=== PATIENT | male | born 1965 | race Two or more races ===

== ENCOUNTER 2016-10-27 11:59 | Inpatient (IN) | payer MEDICARE, OTHER ==
[2016-10-27] MEDS ORDERED: ACETAMINOPHEN 325 MG TABLET (FP) PO PRN (17:53)
[2016-10-27] MEDS ORDERED: guaiFENesin/D-METHORPHAN HB 10 ML UNIT-DOSE CUPS PO PRN (17:53)
[2016-10-27] MEDS ORDERED: MAGNESIUM HYDROX 2400MG/30ML ORAL SUSPENSION 30 ML CUP PO PRN (17:53)
[2016-10-27] MEDS ORDERED: IBUPROFEN 400 MG TABLET (FP) PO PRN (17:53)
[2016-10-27] MEDS ORDERED: MAG HYDROX/AL HYDROX/SIMETH 30 ML UNIT-DOSE CUP PO PRN (17:53)
[2016-10-27] MEDS ORDERED: MENTHOL/PHENOL 1 EACH UD MM PRN (17:53)
[2016-10-27] MEDS ORDERED: hydrOXYzine PAMOATE 50 MG CAPSULE (FP) PO PRN (17:53)
[2016-10-27] MEDS ORDERED: MAGNESIUM CITRATE 300 ML BOTTLE PO PRN (17:53)
[2016-10-27] MEDS ORDERED: P-EPHED 60MG/TRIPROLIDI 2.5MG TABLET PO PRN (17:53)
--- NOTE | 2016-10-27 17:53 | HP ---
[facility] Rehab Assess/Revision - Admission History Admitted to Rehab from: [facility] Date of Admission to Rehab: 10/27/16 - Vital signs Vital Signs: Vital Signs Period Temp Pulse Resp BP Sys/Gurrola Pulse Ox Last 24 Hr 97.4 F 97 20 127/72 - Findings Detox History & Physical reviewed: Yes Concur with findings: Yes Comments/Additional Findings: completed detox on 10/24/16, denies significant change on medical + mental. asmitted to rehab as per protocol
[2016-10-27] MEDS: THIAMINE HCL 100 MG TABLET (FP) PO SCH (21:56)
[2016-10-28] MEDS: PRENATAL VITAMINS W/ FOLIC ACID TABLET (FP) PO SCH (09:59)
[2016-10-28 10:23] LABS: MCH 26.4 pg (25.7-33.7); MCHC 32.5 g/dl (32.0-35.9); MEAN CELL VOLUME 81.2 fl (80-96); MEAN PLT VOLUME 7.4 fl (7.5-11.1); PLATELET COUNT 314 K/MM3 (134-434); RDW 15.5 % (11.9-15.9); WHITE BLOOD COUNT 6.1 K/mm3 (4.0-10.0)
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
[2016-10-28 10:38] LABS: ALBUMIN 4.1 g/dl (3.4-5.0); ALK PHOS 107 U/L (45-117); ANION GAP 7 (8-16); BILIRUBIN,TOTAL 0.5 mg/dL (0.2-1.0); CALCIUM 10.4 mg/dL (8.5-10.1); CO2 30 mmol/L (21-32); CREATININE 1.1 mg/dL (0.7-1.3); GLUCOSE,RANDOM 111 mg/dL (74-106); SGOT/AST 15 U/L (15-37); SGPT/ALT 30 U/L (12-78); TOT PROT 7.8 g/dl (6.4-8.2)
[2016-10-28 11:03] LABS: HIV 1 & 2 AB NEGATIVE; HIV 1 AGp24 NEGATIVE
[2016-10-28 14:34] LABS: URINE APPEARANCE CLEAR; URINE BILIRUBIN NEGATIVE (NEGATIVE); URINE BLOOD NEGATIVE (NEGATIVE); URINE COLOR LTYELLOW; URINE GLUCOSE (UA) NEGATIVE (NEGATIVE); URINE KETONE NEGATIVE (NEGATIVE); URINE LEUK ESTERASE NEGATIVE (NEGATIVE); URINE NITRITE NEGATIVE (NEGATIVE); URINE PROTEIN NEGATIVE (NEGATIVE); URINE UROBILINOGEN NEGATIVE E.U./dl (0.2-1.0)
[2016-10-28] MEDS: THIAMINE HCL 100 MG TABLET (FP) PO SCH (21:43)
[2016-10-29] MEDS: LOPERAMIDE HCL 2 MG CAPSULE PO PRN ×2 (10:11→21:44)
[2016-10-29] MEDS: PRENATAL VITAMINS W/ FOLIC ACID TABLET (FP) PO SCH (10:11)
[2016-10-29] MEDS ORDERED: cloNIDine HCL 0.1 MG TABLET PO ONE (12:29)
[2016-10-29] MEDS ORDERED: CYCLOBENZAPRINE HCL 10 MG TABLET (FP) PO PRN (12:30)
[2016-10-29] MEDS: SERTRALINE HCL 50 MG TABLET (FP) PO SCH (21:42)
[2016-10-29] MEDS: diphenhydrAMINE HCL 50 MG CAPSULE PO PRN (21:43)
[2016-10-29] MEDS: cloNIDine HCL 0.1 MG TABLET PO SCH (21:43)
[2016-10-29] MEDS: THIAMINE HCL 100 MG TABLET (FP) PO SCH (21:43)
[2016-10-30] MEDS: cloNIDine HCL 0.1 MG TABLET PO SCH ×2 (09:59→21:20)
[2016-10-30] MEDS: SERTRALINE HCL 50 MG TABLET (FP) PO SCH ×2 (09:59→21:20)
[2016-10-30] MEDS: PRENATAL VITAMINS W/ FOLIC ACID TABLET (FP) PO SCH (09:59)
[2016-10-30] MEDS: THIAMINE HCL 100 MG TABLET (FP) PO SCH (21:20)
[2016-10-30] MEDS: diphenhydrAMINE HCL 50 MG CAPSULE PO PRN (21:21)
[2016-10-31] MEDS: cloNIDine HCL 0.1 MG TABLET PO SCH ×2 (09:40→21:20)
[2016-10-31] MEDS: PRENATAL VITAMINS W/ FOLIC ACID TABLET (FP) PO SCH (09:40)
[2016-10-31] MEDS: SERTRALINE HCL 50 MG TABLET (FP) PO SCH ×2 (09:40→21:20)
[2016-10-31] MEDS: THIAMINE HCL 100 MG TABLET (FP) PO SCH (21:21)
[2016-10-31] MEDS: diphenhydrAMINE HCL 50 MG CAPSULE PO PRN (21:21)
[2016-11-01] MEDS: PRENATAL VITAMINS W/ FOLIC ACID TABLET (FP) PO SCH (09:36)
[2016-11-01] MEDS: SERTRALINE HCL 50 MG TABLET (FP) PO SCH ×2 (09:36→21:10)
[2016-11-01] MEDS: cloNIDine HCL 0.1 MG TABLET PO SCH ×2 (09:36→21:10)
[2016-11-01] MEDS: LOPERAMIDE HCL 2 MG CAPSULE PO PRN (13:14)
[2016-11-01] MEDS: THIAMINE HCL 100 MG TABLET (FP) PO SCH (21:10)
[2016-11-01] MEDS: diphenhydrAMINE HCL 50 MG CAPSULE PO PRN (21:11)
[2016-11-02 06:40] VITALS: TEMP 98.1
[2016-11-02] MEDS: PRENATAL VITAMINS W/ FOLIC ACID TABLET (FP) PO SCH (09:51)
[2016-11-02] MEDS: SERTRALINE HCL 50 MG TABLET (FP) PO SCH ×2 (09:51→21:42)
[2016-11-02] MEDS: cloNIDine HCL 0.1 MG TABLET PO SCH ×2 (09:51→21:43)
[2016-11-02] MEDS: diphenhydrAMINE HCL 50 MG CAPSULE PO PRN (21:42)
[2016-11-02] MEDS: THIAMINE HCL 100 MG TABLET (FP) PO SCH (21:43)
[2016-11-03 06:58] VITALS: BP 136/72; PULSE 81
[2016-11-03] MEDS: cloNIDine HCL 0.1 MG TABLET PO SCH (09:54)
[2016-11-03] MEDS: SERTRALINE HCL 50 MG TABLET (FP) PO SCH (09:54)
[2016-11-03] MEDS: PRENATAL VITAMINS W/ FOLIC ACID TABLET (FP) PO SCH (09:54)
--- NOTE | 2016-11-03 13:04 | PN ---
[id number] on outpatient basis.Patient will continue current medications as per plan.Scripts for 30 days provided.Therapy provided focusing on coping skills ,support system utilization to maintain recovery process. Patient is stable for discharge today.
== END 2016-11-03 13:20 | disposition home or self-care (01) | DRG 895 ==
LOC: YASAS 11:59 → Y5N 17:39
PROVIDERS: ADMIT Psychiatry & Neurology Psychiatry; ATTEND Psychiatry & Neurology Psychiatry
PROC: HZ42ZZZ Group Counseling for Substance Abuse Treatment, Cognitive-Behavioral (ICD-10-PCS; principal; 2016-10-27)
DX: F11.23 Opioid dependence with withdrawal (principal); F33.9 Major depressive disorder, recurrent, unspecified; F17.210 Nicotine dependence, cigarettes, uncomplicated; F43.10 Post-traumatic stress disorder, unspecified
CPT/HCPCS: 36415; 80053; 81003; 85027; 86593; 87389; 93005; 93010

== ENCOUNTER 2016-11-28 11:45 | Inpatient (IN) | payer MEDICARE, OTHER ==
[2016-11-28 12:09] VITALS: BMI 29.7
--- NOTE | 2016-11-28 12:09 | HP ---
COWS - Scale Resting Pulse: 1= [place] 81-100 Sweatin= Chills/Flushing Restless Observation: 1= Difficult to Sit Still Pupil Size: 0= Normal to Room Light Bone or Joint Aches: 1= Mild Discomfort Runny Nose/ Eye Tearin= Nasal Congestion GI Upset > 30mins: 1= Stomach Cramp Tremor Observation: 1= Tremor [place], Not Seen Yawning Observation: 1= 1-2x During Session Anxiety or Irritability: 2=Irritable/Anxious Goose Flesh Skin: 0=Smooth Skin COWS Score: 10 Admission ROS BHS - HPI Chief Complaint: I'm tired, I have to stop, I can't do this any more Allergies/Adverse Reactions: Allergies Allergy/AdvReac Type Severity Reaction Status Date / Time No Known Allergies Allergy Verified 11/28/16 11:55 History of Present Illness: 51 yo gentleman here for detox from heroin - previously here for detox and rehab 10/20 - 11/03/16 and relapsed shortly after leaving. Exam Limitations: Clinical Condition - Ebola screening Have you traveled outside of the country in the last 21 days: No Have you had contact with anyone from an Ebola affected area: No Do you have a fever: No Patient History - Patient Medical History Hx Anemia: No Hx Asthma: No Hx Chronic Obstructive Pulmonary Disease (COPD): No Hx Cancer: No Hx Cardiac Disorders: No Hx Congestive Heart Failure: No Hx Hypertension: No Hx Hypercholesterolemia: No Hx Pacemaker: No HX Cerebrovascular Accident: No Hx Seizures: No Hx Dementia: No Hx Diabetes: No Hx Gastrointestinal Disorders: No Hx Liver Disease: No Hx Genitourinary Disorders: No Hx Sexually Transmitted Disorders: No Hx Renal Disease (ESRD): No Hx Thyroid Disease: No Hx Human Immunodeficiency Virus (HIV): No Hx Hepatitis C: No Hx Depression: Yes (on meds, hx PTSD) Hx Suicide Attempt: Yes (age 40, pills) Hx Bipolar Disorder: No Hx Schizophrenia: No - Patient Surgical History Past Surgical History: No Hx Neurologic Surgery: No Hx Cataract Extraction: No Hx Cardiac Surgery: No Hx Lung Surgery: No Hx Breast Surgery: No Hx Breast Biopsy: No Hx Abdominal Surgery: No Hx Appendectomy: No Hx Cholecystectomy: No Hx Genitourinary Surgery: No Hx Section: No Hx Orthopedic Surgery: No Anesthesia Reaction: No - PPD History Previous Implant?: Yes Documented Results: Negative w/proof Implanted On Prior [facility] Admission?: Yes Date: 10/22/16 PPD to be Administered?: Yes - Reproductive History Patient is a Female of Child Bearing Age (11 -55 yrs old): No (male) - Smoking Cessation Smoking history: Current every day smoker Have you smoked in the past 12 months: Yes Aproximately how many cigarettes per day: 10 Cigars Per Day: 0 Hx Chewing Tobacco Use: No Initiated information on smoking cessation: Yes 'Breaking Loose' booklet given: 11/28/16 (give on floor) - Substance & Tx. History Hx Alcohol Use: No Hx Substance Use: Yes Substance Use Type: Opiates Hx Substance Use Treatment: Yes (detox, rehab) - Substances Abused Heroin Route: Inhalation Frequency: Daily Amount used: 6 bags Age of first use: 49 Date of Last Use: 11/28/16 Family Disease History - Family Disease History Family Disease History: Heart Disease: Mother (STROKE), Other: Father ( MVA) Admission Physical Exam [facility] - Vital Signs Vital Signs: Vital Signs Period Temp Pulse Resp BP Sys/Gurrola Pulse Ox Last 24 Hr 97.8 F 90 18 144/95 - Physical General Appearance: Yes: Nourished, Appropriately Dressed, Mild Distress HEENTM: Yes: Hearing grossly Normal, Normal ENT Inspection, Normocephalic, Normal Voice, Pharynx Normal Respiratory: Yes: Normal Breath Sounds, No Respiratory Distress Neck: Yes: No masses,lesions,Nodules, Supple Breast: Yes: Breast Exam Deferred Cardiology: Yes: Regular Rhythm, Regular Rate Abdominal: Yes: Soft Genitourinary: Yes: Within Normal Limits Back: Yes: Normal Inspection Musculoskeletal: Yes: full range of Motion, Gait Steady Extremities: Yes: Normal Inspection 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: Yes: Fully Oriented, Alert, Normal Mood/Affect, Normal Response Integumentary: Yes: Normal Color, Warm Lymphatic: Yes: Within Normal Limits - Diagnostic (1) Nicotine dependence Current Visit: Yes Status: Chronic Qualifiers: Nicotine product type: cigarettes Substance use status: uncomplicated Qualified Code(s): F17.210 - Nicotine dependence, cigarettes, uncomplicated (2) Opioid dependence with withdrawal Current Visit: Yes Status: Chronic Cleared for Admission [facility] - Detox or Rehab S Level of Care: Medically Managed Detox Regimen/Protocol: Methadone S Breath Alcohol Content Breath Alcohol Content: 0
[2016-11-28] MEDS ORDERED: guaiFENesin/D-METHORPHAN HB 10 ML UNIT-DOSE CUPS PO PRN (12:14)
[2016-11-28] MEDS ORDERED: IBUPROFEN 400 MG TABLET (FP) PO PRN (12:14)
[2016-11-28] MEDS ORDERED: P-EPHED 60MG/TRIPROLIDI 2.5MG TABLET PO PRN (12:14)
[2016-11-28] MEDS ORDERED: MAGNESIUM CITRATE 300 ML BOTTLE PO PRN (12:14)
[2016-11-28] MEDS ORDERED: LOPERAMIDE HCL 2 MG CAPSULE PO PRN (12:14)
[2016-11-28] MEDS ORDERED: hydrOXYzine PAMOATE 50 MG CAPSULE (FP) PO PRN (12:14)
[2016-11-28] MEDS ORDERED: MAGNESIUM HYDROX 2400MG/30ML ORAL SUSPENSION 30 ML CUP PO PRN (12:14)
[2016-11-28] MEDS ORDERED: NICOTINE POLACRILEX 4 MG GUM BUC PRN (12:14)
[2016-11-28] MEDS ORDERED: MENTHOL/PHENOL 1 EACH UD MM PRN (12:14)
[2016-11-28] MEDS ORDERED: MAG HYDROX/AL HYDROX/SIMETH 30 ML UNIT-DOSE CUP PO PRN (12:14)
[2016-11-28] MEDS ORDERED: ACETAMINOPHEN 325 MG TABLET (FP) PO PRN (12:14)
[2016-11-28] MEDS ORDERED: METHADONE HCL 10 MG TABLET (FOR DETOX USE ONLY) PO ONE ×2 (12:30→23:00)
[2016-11-28] MEDS: diazePAM 5 MG TABLET PO PRN ×2 (12:53→22:24)
[2016-11-28 16:32] LABS: URINE APPEARANCE CLEAR; URINE BILIRUBIN NEGATIVE (NEGATIVE); URINE COLOR LTYELLOW; URINE GLUCOSE (UA) NEGATIVE (NEGATIVE); URINE KETONE NEGATIVE (NEGATIVE); URINE LEUK ESTERASE NEGATIVE (NEGATIVE); URINE NITRITE NEGATIVE (NEGATIVE); URINE PROTEIN NEGATIVE (NEGATIVE); URINE UROBILINOGEN NEGATIVE E.U./dl (0.2-1.0)
[2016-11-28 16:37] LABS: URINE BLOOD 1+ (NEGATIVE)
[2016-11-28 16:54] LABS: URINE MUCUS FEW; URINE RBC 2 /hpf (0-3); URINE WBC 1 /hpf (3-5)
[2016-11-28] MEDS: diphenhydrAMINE HCL 50 MG CAPSULE PO PRN (22:24)
[2016-11-28] MEDS: THIAMINE HCL 100 MG TABLET (FP) PO SCH (22:24)
--- NOTE | 2016-11-29 09:46 | EKG ---
Test Reason : Blood Pressure : / mmHG Vent. Rate : 083 BPM Atrial Rate : 083 BPM P-R Int : 146 ms QRS Dur : 084 ms QT Int : 324 ms P-R-T Axes : 118 049 066 degrees QTc Int : 380 ms NORMAL SINUS RHYTHM POOR DATA QUALITY, INTERPRETATION MAY BE ADVERSELY AFFECTED BASELINE ARTIFACT Confirmed by SHARI SONI MD ([id number]) on 11/29/2016 9:46:18 AM Referred By: Confirmed By:SHARI SONI MD
[2016-11-29] MEDS ORDERED: METHADONE HCL 10 MG TABLET (FOR DETOX USE ONLY) PO ONE (10:00)
[2016-11-29 10:21] LABS: MCH 26.8 pg (25.7-33.7); MEAN CELL VOLUME 81.2 fl (80-96); MEAN PLT VOLUME 7.3 fl (7.5-11.1); PLATELET COUNT 331 K/MM3 (134-434); RDW 15.6 % (11.9-15.9)
[2016-11-29] MEDS: diazePAM 5 MG TABLET PO PRN ×2 (10:29→21:59)
[2016-11-29] MEDS: PRENATAL VITAMINS W/ FOLIC ACID TABLET (FP) PO SCH (10:29)
[2016-11-29 10:37] LABS: ALBUMIN 3.8 g/dl (3.4-5.0); ANION GAP 11 (8-16); BILIRUBIN,TOTAL 0.4 mg/dL (0.2-1.0); CALCIUM 9.4 mg/dL (8.5-10.1); CO2 27 mmol/L (21-32); CREATININE 0.9 mg/dL (0.7-1.3); GLUCOSE,RANDOM 98 mg/dL (74-106); SGOT/AST 11 U/L (15-37); SGPT/ALT 20 U/L (12-78); TOT PROT 7.4 g/dl (6.4-8.2)
[2016-11-29 10:38] LABS: ALK PHOS 102 U/L (45-117)
--- NOTE | 2016-11-29 14:46 | PN ---
BHS COWS - Scale Resting Pulse: 1= MT 81-100 Sweatin=Flushed/Facial Moisture Restless Observation: 1= Difficult to Sit Still Pupil Size: 0= Normal to Room Light Bone or Joint Aches: 2= Severe Diffuse Aches Runny Nose/ Eye Tearin= Runny Nose/Eyes GI Upset > 30mins: 2= Nausea/Diarrhea Tremor Observation of Outstretched Hands: 2= Slight Tremor Visible Yawning Observation: 1= 1-2x During Session Anxiety or Irritability: 2=Irritable/Anxious Goose Flesh Skin: 0=Smooth Skin COWS Score: 15 BHS Progress Note (SOAP) Subjective: SWEATING,ANXIETY,BODY ACHES,INTERRUPTED SLEEP,REST LESS. Objective: 11/29/16 14:45 Vital Signs - 8 hr 11/29/16 10:00 Temperature 98.1 F Pulse Rate 95 H Respiratory 18 Rate Blood Pressure 149/97 Laboratory Last Values WBC 6.0 K/mm3 (4.0-10.0) 11/29/16 07:20 RBC 5.71 M/mm3 (4.00-5.60) H 11/29/16 07:20 Hgb 15.3 GM/dL (11.7-16.9) 11/29/16 07:20 Hct 46.4 % (35.4-49) 11/29/16 07:20 MCV 81.2 fl (80-96) 11/29/16 07:20 MCHC 33.0 g/dl (32.0-35.9) 11/29/16 07:20 RDW 15.6 % (11.9-15.9) 11/29/16 07:20 Plt Count 331 K/MM3 (134-434) 11/29/16 07:20 MPV 7.3 fl (7.5-11.1) L 11/29/16 07:20 Sodium 142 mmol/L (136-145) 11/29/16 07:20 Potassium 4.1 mmol/L (3.5-5.1) 11/29/16 07:20 Chloride 104 mmol/L (98-107) 11/29/16 07:20 Carbon Dioxide 27 mmol/L (21-32) 11/29/16 07:20 Anion Gap 11 (8-16) 11/29/16 07:20 BUN 10 mg/dL (7-18) 11/29/16 07:20 Creatinine 0.9 mg/dL (0.7-1.3) 11/29/16 07:20 Creat Clearance w eGFR > 60 (>60) 11/29/16 07:20 Random Glucose 98 mg/dL (74-106) 11/29/16 07:20 Calcium 9.4 mg/dL (8.5-10.1) 11/29/16 07:20 Total Bilirubin 0.4 mg/dL (0.2-1.0) 11/29/16 07:20 AST 11 U/L (15-37) L D 11/29/16 07:20 ALT 20 U/L (12-78) D 11/29/16 07:20 Alkaline Phosphatase 102 U/L (45-117) 11/29/16 07:20 Total Protein 7.4 g/dl (6.4-8.2) 11/29/16 07:20 Albumin 3.8 g/dl (3.4-5.0) 11/29/16 07:20 Urine Color Ltyellow 11/28/16 12:45 Urine Appearance Clear 11/28/16 12:45 Urine pH 6.0 (5.0-8.0) 11/28/16 12:45 Ur Specific Clear 1.017 (1.001-1.035) 11/28/16 12:45 Urine Protein Negative (NEGATIVE) 11/28/16 12:45 Urine Glucose (UA) Negative (NEGATIVE) 11/28/16 12:45 Urine Ketones Negative (NEGATIVE) 11/28/16 12:45 Urine Blood 1+ (NEGATIVE) H 11/28/16 12:45 Urine Nitrite Negative (NEGATIVE) 11/28/16 12:45 Urine Bilirubin Negative (NEGATIVE) 11/28/16 12:45 Urine Urobilinogen Negative E.U./dl (0.2-1.0) 11/28/16 12:45 Ur Leukocyte Esterase Negative (NEGATIVE) 11/28/16 12:45 Urine RBC 2 /hpf (0-3) 11/28/16 12:45 Urine WBC 1 /hpf (3-5) 11/28/16 12:45 Ur Epithelial Cells Rare /hpf (FEW) 11/28/16 12:45 Urine Mucus Few 11/28/16 12:45 RPR Titer Nonreactive (NONREACTIVE) 11/29/16 07:20 LABS NOTED Assessment: 11/29/16 14:45 WITHDRAWAL SX. Plan: CONTINUE DETOX
[2016-11-29] MEDS: diphenhydrAMINE HCL 50 MG CAPSULE PO PRN (21:58)
[2016-11-29] MEDS: THIAMINE HCL 100 MG TABLET (FP) PO SCH (21:59)
--- NOTE | 2016-11-30 09:17 | CONSULT ---
[facility] Psychiatric Consult - Data Date of interview: 11/30/16 Admission source: [facility] Identifying data: This is 51 years old male with history of MDD and PTSD, intoxicated with Opiuoids and Nicotine. Patient reports unclear past psychiatric history, as per computer havinf MMD, PTSD history. Substance Abuse History: - Smoking Cessation. Smoking history: Current every day smoker. Have you smoked in the past 12 months: Yes. Aproximately how many cigarettes per day: 10. Cigars Per Day: 0. Hx Chewing Tobacco Use: No. Initiated information on smoking cessation: Yes. 'Breaking Loose' booklet given : 11/28/16 (give on floor). - Substance & Tx. History. Hx Alcohol Use: No. Hx Substance Use: Yes. Substance Use Type: Opiates. Hx Substance Use Treatment : Yes (detox, rehab). - Substances Abused. Heroin. Route: Inhalation. Frequency: Daily. Amount used: 6 bags. Age of first use: 49. Date of Last Use : 11/28/16 Medical History: Denies Psychiatric History: Patient with history of MDD and PTSD, poor historian, as per computer [facility] been on Zoloft 100mg po bid, currently refusding psychiatric medications Physical/Sexual Abuse/Trauma History: Denies Additional Comment: Observation. Detox Unit Care Protocol Mental Status Exam - Mental Status Exam Alert and Oriented to: Person Cognitive Function: Fair Patient Appearance: Unkempt Mood: Sad Affect: Flat Patient Behavior: Sedated Speech Pattern: Delayed Voice Loudness: Moderately Soft/Quiet Thought Process: Circumstantial Thought Disorder: Being Controlled Hallucinations: Denies Suicidal Ideation: Denies Homicidal Ideation: Denies Insight/Judgement: Fair Sleep: Difficulty falling asleep Appetite: Weight gain Muscle strength/Tone: Mild Hypotonicity Gait/Station: Shuffling Additional Comments: Observation. Detox Unit Care Protocol Psychiatric Findings - Problem List ([place] 1, 2,3) (1) Nicotine dependence Current Visit: Yes Status: Chronic Qualifiers: Nicotine product type: cigarettes Substance use status: uncomplicated Qualified Code(s): F17.210 - Nicotine dependence, cigarettes, uncomplicated (2) Opioid dependence with withdrawal Current Visit: Yes Status: Chronic (3) MDD (major depressive disorder) Current Visit: No Status: Acute (4) PTSD (post-traumatic stress disorder) Current Visit: No Status: Acute (5) Substance induced mood disorder Current Visit: No Status: Acute - Initial Treatment Plan Initial Treatment Plan: Observation. Detox Unit Care Protocol
[2016-11-30] MEDS ORDERED: METHADONE HCL 5 MG TABLET (FOR DETOX USE ONLY) PO ONE (10:00)
[2016-11-30] MEDS: diazePAM 5 MG TABLET PO PRN ×3 (10:25→22:29)
[2016-11-30] MEDS: PRENATAL VITAMINS W/ FOLIC ACID TABLET (FP) PO SCH (10:26)
--- NOTE | 2016-11-30 11:03 | PN ---
S COWS - Scale Resting Pulse: 1= [place] 81-100 Sweatin= Chills/Flushing Restless Observation: 1= Difficult to Sit Still Pupil Size: 1= Pupils >than Normal Bone or Joint Aches: 1= Mild Discomfort Runny Nose/ Eye Tearin= Nasal Congestion GI Upset > 30mins: 2= Nausea/Diarrhea Tremor Observation of Outstretched Hands: 2= Slight Tremor Visible Yawning Observation: 1= 1-2x During Session Anxiety or Irritability: 2=Irritable/Anxious Goose Flesh Skin: 3=Piloerection COWS Score: 16 S Progress Note (SOAP) Subjective: nausea, sweats, interrupted sleep, anxiety, tremors Objective: 11/30/16 11:03 Vital Signs - 24 hr 11/29/16 11/29/16 11/30/16 17:58 21:35 00:30 Temperature 98.4 F 96.4 F L Pulse Rate 79 99 H Respiratory 18 20 18 Rate Blood Pressure 130/70 127/91 11/30/16 11/30/16 11/30/16 03:30 05:02 10:22 Temperature 97.9 F 98.4 F Pulse Rate 77 90 Respiratory 18 18 20 Rate Blood Pressure 116/73 134/94 Laboratory Tests 11/28/16 11/29/16 11/29/16 12:45 07:20 07:20 WBC 6.0 RBC 5.71 H Hgb 15.3 Hct 46.4 MCV 81.2 MCHC 33.0 RDW 15.6 Plt Count 331 MPV 7.3 L Sodium 142 Potassium 4.1 Chloride 104 Carbon Dioxide 27 Anion Gap 11 BUN 10 Creatinine 0.9 Creat Clearance w eGFR > 60 Random Glucose 98 Calcium 9.4 Total Bilirubin 0.4 AST 11 L D ALT 20 D Alkaline Phosphatase 102 Total Protein 7.4 Albumin 3.8 Urine Color Ltyellow Urine Appearance Clear Urine pH 6.0 Ur Specific [place] 1.017 Urine Protein Negative Urine Glucose (UA) Negative Urine Ketones Negative Urine Blood 1+ H Urine Nitrite Negative Urine Bilirubin Negative Urine Urobilinogen Negative Ur Leukocyte Esterase Negative Urine RBC 2 Urine WBC 1 Ur Epithelial Cells Rare Urine Mucus Few RPR Titer 11/29/16 07:20 WBC RBC Hgb Hct MCV MCHC RDW Plt Count MPV Sodium Potassium Chloride Carbon Dioxide Anion Gap BUN Creatinine Creat Clearance w eGFR Random Glucose Calcium Total Bilirubin AST ALT Alkaline Phosphatase Total Protein Albumin Urine Color Urine Appearance Urine pH Ur Specific [place] Urine Protein Urine Glucose (UA) Urine Ketones Urine Blood Urine Nitrite Urine Bilirubin Urine Urobilinogen Ur Leukocyte Esterase Urine RBC Urine WBC Ur Epithelial Cells Urine Mucus RPR Titer Nonreactive Assessment: 11/30/16 11:03 withdrawal sx Plan: cont detox
[2016-11-30] MEDS: diphenhydrAMINE HCL 50 MG CAPSULE PO PRN (22:28)
[2016-11-30] MEDS: THIAMINE HCL 100 MG TABLET (FP) PO SCH (22:29)
[2016-12-01] MEDS ORDERED: METHADONE HCL 5 MG TABLET (FOR DETOX USE ONLY) PO ONE (10:00)
--- NOTE | 2016-12-01 10:20 | PN ---
BHS Progress Note (SOAP) Subjective: shakes sweats agitation interrupted sleep body aches irritable Objective: 12/01/16 10:19 Vital Signs Temperature 97.9 F 12/01/16 09:37 Pulse Rate 94 H 12/01/16 09:37 Respiratory Rate 18 12/01/16 09:37 Blood Pressure 142/99 12/01/16 09:37 O2 Sat by Pulse Oximetry (%) Laboratory Tests 11/28/16 11/29/16 11/29/16 12:45 07:20 07:20 WBC 6.0 RBC 5.71 H Hgb 15.3 Hct 46.4 MCV 81.2 MCHC 33.0 RDW 15.6 Plt Count 331 MPV 7.3 L Sodium 142 Potassium 4.1 Chloride 104 Carbon Dioxide 27 Anion Gap 11 BUN 10 Creatinine 0.9 Creat Clearance w eGFR > 60 Random Glucose 98 Calcium 9.4 Total Bilirubin 0.4 AST 11 L D ALT 20 D Alkaline Phosphatase 102 Total Protein 7.4 Albumin 3.8 Urine Color Ltyellow Urine Appearance Clear Urine pH 6.0 Ur Specific [place] 1.017 Urine Protein Negative Urine Glucose (UA) Negative Urine Ketones Negative Urine Blood 1+ H Urine Nitrite Negative Urine Bilirubin Negative Urine Urobilinogen Negative Ur Leukocyte Esterase Negative Urine RBC 2 Urine WBC 1 Ur Epithelial Cells Rare Urine Mucus Few RPR Titer 11/29/16 07:20 WBC RBC Hgb Hct MCV MCHC RDW Plt Count MPV Sodium Potassium Chloride Carbon Dioxide Anion Gap BUN Creatinine Creat Clearance w eGFR Random Glucose Calcium Total Bilirubin AST ALT Alkaline Phosphatase Total Protein Albumin Urine Color Urine Appearance Urine pH Ur Specific [place] Urine Protein Urine Glucose (UA) Urine Ketones Urine Blood Urine Nitrite Urine Bilirubin Urine Urobilinogen Ur Leukocyte Esterase Urine RBC Urine WBC Ur Epithelial Cells Urine Mucus RPR Titer Nonreactive awake/alert ambulating no acute distress Assessment: 12/01/16 10:20 withdrawal sx Plan: continue detox increase fluids
[2016-12-01] MEDS: diazePAM 5 MG TABLET PO PRN (10:32)
[2016-12-01] MEDS: PRENATAL VITAMINS W/ FOLIC ACID TABLET (FP) PO SCH (10:33)
[2016-12-01 14:09] VITALS: BP 123/74; PULSE 100; TEMP 99.9
--- NOTE | 2016-12-01 15:21 | DS ---
[facility] Detox Discharge Summary Admission Date: 11/28/16 Discharge Date: 12/01/16 (I need to leave this place) - History Present History: Opioid Dependence - Physical Exam Results Vital Signs: Vital Signs Temperature 99.9 F H 12/01/16 14:08 Pulse Rate 100 H 12/01/16 14:08 Respiratory Rate 18 12/01/16 14:08 Blood Pressure 123/74 12/01/16 14:08 O2 Sat by Pulse Oximetry (%) - Medication Discharge Medications: Ambulatory Orders Sertraline HCl [Zoloft -] 100 mg PO BID #120 tablet 11/03/16 - Diagnosis (1) MDD (major depressive disorder) Status: Acute (2) PTSD (post-traumatic stress disorder) Status: Acute (3) Substance induced mood disorder Status: Acute (4) Nicotine dependence Status: Chronic Qualifiers: Nicotine product type: cigarettes Substance use status: uncomplicated Qualified Code(s): F17.210 - Nicotine dependence, cigarettes, uncomplicated (5) Opioid dependence with withdrawal Status: Chronic (6) Depression Status: Suspected Qualifiers: Depression Type: dysthymia Qualified Code(s): F34.1 - Dysthymic disorder - AMA Did Patient Leave Against Medical Advice: Yes
[2016-12-02] MEDS ORDERED: METHADONE HCL 10 MG TABLET (FOR DETOX USE ONLY) PO ONE (10:00)
[2016-12-03] MEDS ORDERED: METHADONE HCL 5 MG TABLET (FOR DETOX USE ONLY) PO ONE (06:00)
== END 2016-12-01 15:01 | disposition left against medical advice (07) | DRG 894 ==
LOC: YASAS 11:45 → Y6N 12:20
PROVIDERS: ADMIT Internal Medicine Addiction Medicine; ATTEND Internal Medicine Addiction Medicine
PROC: HZ2ZZZZ Detoxification Services for Substance Abuse Treatment (ICD-10-PCS; principal; 2016-12-01)
DX: F11.23 Opioid dependence with withdrawal (principal); F33.9 Major depressive disorder, recurrent, unspecified; F17.210 Nicotine dependence, cigarettes, uncomplicated; F34.1 Dysthymic disorder; F43.10 Post-traumatic stress disorder, unspecified
CPT/HCPCS: 36415; 80053; 81003; 81015; 85027; 86593; 93005; 93010

== ENCOUNTER 2017-01-09 12:15 | Inpatient (IN) | payer MEDICARE, OTHER ==
[2017-01-09 13:08] VITALS: BMI 28.8
--- NOTE | 2017-01-09 13:40 | HP ---
[id number] Restless Observation: 1= Difficult to Sit Still Pupil Size: 0= Normal to Room Light Bone or Joint Aches: 2= Severe Diffuse Aches Runny Nose/ Eye Tearin= Runny Nose/Eyes GI Upset > 30mins: 1= Stomach Cramp Tremor Observation: 1= Tremor [place], Not Seen Yawning Observation: 1= 1-2x During Session Anxiety or Irritability: 1=Feels Anxious/Irritable Goose Flesh Skin: 0=Smooth Skin COWS Score: 11 Admission ROS BHS - HPI Chief Complaint: I'm at the end of my rope, I've got to stop the cycle Allergies/Adverse Reactions: Allergies Allergy/AdvReac Type Severity Reaction Status Date / Time No Known Allergies Allergy Verified 01/09/17 13:19 History of Present Illness: 51 yo gentleman here for detox from heroin. Previous detox 11/28/16, then relapsed. No seizures or black outs. Exam Limitations: Clinical Condition - Ebola screening Have you traveled outside of the country in the last 21 days: No Have you had contact with anyone from an Ebola affected area: No Have you been sick,other than usual withdrawal symptoms: No Do you have a fever: No - Review of Systems Constitutional: Loss of Appetite, Malaise, Night Sweats, Changes in sleep EENT: reports: Nose Congestion Respiratory: reports: No Symptoms reported Cardiac: reports: No Symptoms Reported GI: reports: Nausea, Poor Appetite : reports: Dysuria Musculoskeletal: reports: Back Pain, Muscle Pain Integumentary: reports: No Symptoms Reported Neuro: reports: Headache Endocrine: reports: No Symptoms Reported Psychiatric: reports: Judgement Intact, Mood/Affect Appropiate, Orientated x3 Other Systems: Reviewed and Negative Patient History - Patient Medical History Hx Anemia: No Hx Asthma: No Hx Chronic Obstructive Pulmonary Disease (COPD): No Hx Cancer: No Hx Cardiac Disorders: No Hx Congestive Heart Failure: No Hx Hypertension: No Hx Hypercholesterolemia: No Hx Pacemaker: No HX Cerebrovascular Accident: No Hx Seizures: No Hx Dementia: No Hx Diabetes: No Hx Gastrointestinal Disorders: No Hx Liver Disease: No Hx Genitourinary Disorders: No Hx Sexually Transmitted Disorders: No Hx Renal Disease (ESRD): No Hx Thyroid Disease: No Hx Human Immunodeficiency Virus (HIV): No Hx Hepatitis C: No Hx Depression: Yes (on meds, sees psych) Hx Suicide Attempt: No Hx Bipolar Disorder: No Hx Schizophrenia: No - Patient Surgical History Past Surgical History: No Hx Neurologic Surgery: No Hx Cataract Extraction: No Hx Cardiac Surgery: No Hx Lung Surgery: No Hx Breast Surgery: No Hx Breast Biopsy: No Hx Abdominal Surgery: No Hx Appendectomy: No Hx Cholecystectomy: No Hx Genitourinary Surgery: No Hx Section: No Hx Orthopedic Surgery: No Anesthesia Reaction: No - PPD History Previous Implant?: Yes Documented Results: Negative w/proof Implanted On Prior [facility] Admission?: Yes Date: 10/22/16 PPD to be Administered?: No - Reproductive History Patient is a Female of Child Bearing Age (11 -55 yrs old): No (male) - Smoking Cessation Smoking history: Current every day smoker Have you smoked in the past 12 months: Yes Aproximately how many cigarettes per day: 20 Cigars Per Day: 0 Hx Chewing Tobacco Use: No Initiated information on smoking cessation: Yes 'Breaking Loose' booklet given: 01/09/17 (give on floor) - Substance & Tx. History Hx Alcohol Use: No Hx Substance Use: Yes Substance Use Type: Heroin Hx Substance Use Treatment: Yes (detox, ) - Substances Abused Heroin Route: Inhalation Frequency: Daily Amount used: 10 bags Age of first use: 50 Date of Last Use: 01/08/17 Family Disease History - Family Disease History Family Disease History: Heart Disease: Mother (STROKE), Other: Father ( MVA, etoh hx) Admission Physical Exam S - Vital Signs Vital Signs: Vital Signs - 24 hr 01/09/17 13:07 Temperature 97.4 F L Pulse Rate 88 Respiratory 20 Rate Blood Pressure 158/85 - Physical General Appearance: Yes: Nourished, Appropriately Dressed, Mild Distress HEENTM: Yes: Hearing grossly Normal, Normocephalic, Normal Voice, Pharynx Normal , Nasal Congestion Respiratory: Yes: Normal Breath Sounds, No Respiratory Distress Neck: Yes: No masses,lesions,Nodules, Supple, Trachea in good position Breast: Yes: Breast Exam Deferred Cardiology: Yes: Regular Rhythm, Regular Rate Abdominal: Yes: Soft Genitourinary: Yes: Within Normal Limits Back: Yes: Normal Inspection Musculoskeletal: Yes: full range of Motion, Gait Steady, Back pain Extremities: Yes: Normal Inspection, Normal Range of Motion, Non-Tender 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: Yes: Fully Oriented, Alert, Motor Strength 5/5, Normal Mood/Affect , Normal Response Integumentary: Yes: Normal Color, Warm Lymphatic: Yes: Within Normal Limits - Diagnostic (1) Nicotine dependence Current Visit: Yes Status: Chronic Qualifiers: Nicotine product type: cigarettes Substance use status: uncomplicated Qualified Code(s): F17.210 - Nicotine dependence, cigarettes, uncomplicated (2) Opioid dependence with withdrawal Current Visit: Yes Status: Chronic Cleared for Admission [facility] - Detox or Rehab [facility] Level of Care: Medically Managed Detox Regimen/Protocol: Methadone [facility] Breath Alcohol Content Breath Alcohol Content: 0 Urine Drug Screen - Results Drug Screen Negative: No Urine Drug Screen Results: OPI-Opiates, OXY-Oxycodone
[2017-01-09] MEDS ORDERED: MAG HYDROX/AL HYDROX/SIMETH 30 ML UNIT-DOSE CUP PO PRN (13:42)
[2017-01-09] MEDS ORDERED: MENTHOL/PHENOL 1 EACH UD MM PRN (13:42)
[2017-01-09] MEDS ORDERED: P-EPHED 60MG/TRIPROLIDI 2.5MG TABLET PO PRN (13:42)
[2017-01-09] MEDS ORDERED: LOPERAMIDE HCL 2 MG CAPSULE PO PRN (13:42)
[2017-01-09] MEDS ORDERED: MAGNESIUM CITRATE 300 ML BOTTLE PO PRN (13:42)
[2017-01-09] MEDS ORDERED: IBUPROFEN 400 MG TABLET (FP) PO PRN (13:42)
[2017-01-09] MEDS ORDERED: ACETAMINOPHEN 325 MG TABLET (FP) PO PRN (13:42)
[2017-01-09] MEDS ORDERED: guaiFENesin/D-METHORPHAN HB 10 ML UNIT-DOSE CUPS PO PRN (13:42)
[2017-01-09] MEDS ORDERED: hydrOXYzine PAMOATE 50 MG CAPSULE (FP) PO PRN (13:42)
[2017-01-09] MEDS ORDERED: MAGNESIUM HYDROX 2400MG/30ML ORAL SUSPENSION 30 ML CUP PO PRN (13:42)
[2017-01-09] MEDS ORDERED: METHADONE HCL 10 MG TABLET (FOR DETOX USE ONLY) PO ONE ×2 (14:00→23:00)
[2017-01-09] MEDS: diazePAM 5 MG TABLET PO PRN ×2 (14:47→22:17)
[2017-01-09] MEDS: NICOTINE 21 MG/24 HOURS TOPICAL PATCH TD SCH (14:47)
[2017-01-09 17:14] LABS: URINE APPEARANCE CLEAR; URINE BILIRUBIN NEGATIVE (NEGATIVE); URINE BLOOD NEGATIVE (NEGATIVE); URINE COLOR YELLOW; URINE GLUCOSE (UA) NEGATIVE (NEGATIVE); URINE KETONE NEGATIVE (NEGATIVE); URINE LEUK ESTERASE NEGATIVE (NEGATIVE); URINE NITRITE NEGATIVE (NEGATIVE); URINE PROTEIN NEGATIVE (NEGATIVE); URINE UROBILINOGEN NEGATIVE E.U./dl (0.2-1.0)
--- NOTE | 2017-01-09 17:28 | CONSULT ---
[facility] Psychiatric Consult - Data Date of interview: 01/09/17 Admission source: [facility] Identifying data: Another admission to [facility] for this 51 y/o AA male seeking detox treatment on for heroin dependence.Patient is single without children,domiciled,unemployed and supported on SSI benefits. Substance Abuse History: - Smoking Cessation. Smoking history: Current every day smoker. Have you smoked in the past 12 months: Yes. Aproximately how many cigarettes per day: 20. Cigars Per Day: 0. Hx Chewing Tobacco Use: No. Initiated information on smoking cessation: Yes. 'Breaking Loose' booklet given : 01/09/17 (give on floor). - Substance & Tx. History. Hx Alcohol Use: No. Hx Substance Use: Yes. Substance Use Type: Heroin. Hx Substance Use Treatment : Yes (detox, ). - Substances Abused. Heroin. Route: Inhalation. Frequency: Daily. Amount used: 10 bags. Age of first use: 50. Date of Last Use: 01/08/17. Confirmed by patient. Medical History: Patient endorses good general health. Psychiatric History: No history of psychiatric hospitalizations.Diagnosed with MDD/PTSD.Patient reports sporadic contact with his private psychiatrist ( managed on zoloft 100 m/day).Non-compliant for " a few days ".Noted history of a suicide attempt via overdose with drugs (at age 40). Physical/Sexual Abuse/Trauma History: Patient denies. Mental Status Exam - Mental Status Exam Alert and Oriented to: Time, Place, Person Cognitive Function: Good Patient Appearance: Well Groomed (tall stature) Mood: Nervous, Withdrawn, Anxious Affect: Mood Congruent Patient Behavior: Fatigued, Appropriate, Cooperative Speech Pattern: Clear, Appropriate Voice Loudness: Normal Thought Process: Goal Oriented Thought Disorder: Not Present Hallucinations: Denies Suicidal Ideation: Denies Homicidal Ideation: Denies Insight/Judgement: Poor Sleep: Well Appetite: Good Muscle strength/Tone: Normal Gait/Station: Normal Psychiatric Findings - Problem List ([place] 1, 2,3) (1) Opioid dependence with withdrawal Current Visit: Yes Status: Acute (2) Nicotine dependence Current Visit: Yes Status: Acute Qualifiers: Nicotine product type: cigarettes Substance use status: uncomplicated Qualified Code(s): F17.210 - Nicotine dependence, cigarettes, uncomplicated (3) Substance induced mood disorder Current Visit: Yes Status: Acute (4) PTSD (post-traumatic stress disorder) Current Visit: Yes Status: Chronic (5) MDD (major depressive disorder) Current Visit: No Status: Chronic - Initial Treatment Plan Initial Treatment Plan: Psychoeducation.Detoxification.Zoloft 100 mg po daily.Side effects/benefits discused with the patient.He agrees with this plan.Observation.
[2017-01-09] MEDS: THIAMINE HCL 100 MG TABLET (FP) PO SCH (22:17)
[2017-01-09] MEDS: diphenhydrAMINE HCL 50 MG CAPSULE PO PRN (22:17)
[2017-01-10] MEDS ORDERED: METHADONE HCL 10 MG TABLET (FOR DETOX USE ONLY) PO ONE (10:00)
[2017-01-10] MEDS: PRENATAL VITAMINS W/ FOLIC ACID TABLET (FP) PO SCH (10:10)
[2017-01-10] MEDS: SERTRALINE HCL 50 MG TABLET (FP) PO SCH (10:10)
[2017-01-10] MEDS: NICOTINE 21 MG/24 HOURS TOPICAL PATCH TD SCH (10:11)
[2017-01-10 11:18] LABS: ALBUMIN 3.6 g/dl (3.4-5.0); ANION GAP 7 (8-16); CALCIUM 9.2 mg/dL (8.5-10.1); CO2 32 mmol/L (21-32); GLUCOSE,RANDOM 111 mg/dL (74-106); SGOT/AST 11 U/L (15-37); SGPT/ALT 26 U/L (12-78)
[2017-01-10 11:20] LABS: ALK PHOS 94 U/L (45-117); BILIRUBIN,TOTAL 0.4 mg/dL (0.2-1.0); TOT PROT 6.8 g/dl (6.4-8.2)
[2017-01-10 11:37] LABS: MCH 26.4 pg (25.7-33.7); MCHC 32.6 g/dl (32.0-35.9); MEAN CELL VOLUME 80.9 fl (80-96); MEAN PLT VOLUME 7.5 fl (7.5-11.1); PLATELET COUNT 245 K/MM3 (134-434); WHITE BLOOD COUNT 5.6 K/mm3 (4.0-10.0)
--- NOTE | 2017-01-10 12:34 | EKG ---
Test Reason : Blood Pressure : / mmHG Vent. Rate : 085 BPM Atrial Rate : 085 BPM P-R Int : 162 ms QRS Dur : 096 ms QT Int : 370 ms P-R-T Axes : 058 024 053 degrees QTc Int : 440 ms NORMAL SINUS RHYTHM POOR DATA QUALITY, INTERPRETATION MAY BE ADVERSELY AFFECTED Confirmed by SHARI SONI MD ([id number]) on 01/10/2017 12:33:39 PM Referred By: Confirmed By:SHARI SONI MD
--- NOTE | 2017-01-10 15:55 | PN ---
BHS COWS - Scale Resting Pulse: 2= [place] 101-120 Sweatin=Flushed/Facial Moisture Restless Observation: 1= Difficult to Sit Still Pupil Size: 0= Normal to Room Light Bone or Joint Aches: 2= Severe Diffuse Aches Runny Nose/ Eye Tearin= Runny Nose/Eyes GI Upset > 30mins: 2= Nausea/Diarrhea Tremor Observation of Outstretched Hands: 2= Slight Tremor Visible Yawning Observation: 1= 1-2x During Session Anxiety or Irritability: 2=Irritable/Anxious Goose Flesh Skin: 0=Smooth Skin COWS Score: 16 BHS Progress Note (SOAP) Subjective: sweating,anxiety,tremors,interrupted sleep,restless,muscle aches Objective: 01/10/17 15:54 Vital Signs - 8 hr 01/10/17 01/10/17 11:12 13:45 Temperature 97.2 F L 97.0 F L Pulse Rate 104 H 100 H Respiratory 18 20 Rate Blood Pressure 149/98 139/91 Laboratory Tests 01/09/17 01/10/17 01/10/17 12:23 08:00 08:00 WBC 5.6 RBC 5.56 Hgb 14.7 Hct 44.9 MCV 80.9 MCHC 32.6 RDW 15.0 Plt Count 245 D MPV 7.5 Sodium 142 Potassium 4.2 Chloride 103 Carbon Dioxide 32 Anion Gap 7 L BUN 10 Creatinine 1.0 Creat Clearance w eGFR > 60 Random Glucose 111 H Calcium 9.2 Total Bilirubin 0.4 AST 11 L ALT 26 D Alkaline Phosphatase 94 Total Protein 6.8 Albumin 3.6 Urine Color Yellow Urine Appearance Clear Urine pH 5.0 Ur Specific [place] 1.024 Urine Protein Negative Urine Glucose (UA) Negative Urine Ketones Negative Urine Blood Negative Urine Nitrite Negative Urine Bilirubin Negative Urine Urobilinogen Negative Ur Leukocyte Esterase Negative RPR Titer 01/10/17 08:00 WBC RBC Hgb Hct MCV MCHC RDW Plt Count MPV Sodium Potassium Chloride Carbon Dioxide Anion Gap BUN Creatinine Creat Clearance w eGFR Random Glucose Calcium Total Bilirubin AST ALT Alkaline Phosphatase Total Protein Albumin Urine Color Urine Appearance Urine pH Ur Specific [place] Urine Protein Urine Glucose (UA) Urine Ketones Urine Blood Urine Nitrite Urine Bilirubin Urine Urobilinogen Ur Leukocyte Esterase RPR Titer Nonreactive labs noted Assessment: 01/10/17 15:54 Withdrawal sx. Plan: Continue detox
[2017-01-10] MEDS: diazePAM 5 MG TABLET PO PRN (22:13)
[2017-01-10] MEDS: diphenhydrAMINE HCL 50 MG CAPSULE PO PRN (22:13)
[2017-01-10] MEDS: THIAMINE HCL 100 MG TABLET (FP) PO SCH (22:13)
[2017-01-11] MEDS ORDERED: METHADONE HCL 5 MG TABLET (FOR DETOX USE ONLY) PO ONE (10:00)
[2017-01-11] MEDS: NICOTINE 21 MG/24 HOURS TOPICAL PATCH TD SCH (10:14)
[2017-01-11] MEDS: NICOTINE POLACRILEX 4 MG GUM BUC PRN (10:15)
[2017-01-11] MEDS: diazePAM 5 MG TABLET PO PRN ×3 (10:15→22:09)
[2017-01-11] MEDS: SERTRALINE HCL 50 MG TABLET (FP) PO SCH (10:16)
[2017-01-11] MEDS: PRENATAL VITAMINS W/ FOLIC ACID TABLET (FP) PO SCH (10:16)
--- NOTE | 2017-01-11 11:23 | PN ---
BHS COWS - Scale Resting Pulse: 1= [place] 81-100 Sweatin= Chills/Flushing Restless Observation: 3= Extraneous Movement Pupil Size: 2= Moderately Dilated Bone or Joint Aches: 4=Acute Joint/Muscle Pain Runny Nose/ Eye Tearin= Nasal Congestion GI Upset > 30mins: 2= Nausea/Diarrhea Tremor Observation of Outstretched Hands: 1= Tremor [place], Not Seen Yawning Observation: 1= 1-2x During Session Anxiety or Irritability: 1=Feels Anxious/Irritable Goose Flesh Skin: 0=Smooth Skin COWS Score: 17 S Progress Note (SOAP) Subjective: ANXIETY,SWEATS,[place]ARRHE[place]. Objective: 01/11/17 11:22 Vital Signs Temperature 97.5 F L 01/11/17 10:58 Pulse Rate 90 01/11/17 10:58 Respiratory Rate 20 01/11/17 10:58 Blood Pressure 139/92 01/11/17 10:58 O2 Sat by Pulse Oximetry (%) Laboratory Last Values WBC 5.6 K/mm3 (4.0-10.0) 01/10/17 08:00 RBC 5.56 M/mm3 (4.00-5.60) 01/10/17 08:00 Hgb 14.7 GM/dL (11.7-16.9) 01/10/17 08:00 Hct 44.9 % (35.4-49) 01/10/17 08:00 MCV 80.9 fl (80-96) 01/10/17 08:00 MCHC 32.6 g/dl (32.0-35.9) 01/10/17 08:00 RDW 15.0 % (11.9-15.9) 01/10/17 08:00 Plt Count 245 K/MM3 (134-434) D 01/10/17 08:00 MPV 7.5 fl (7.5-11.1) 01/10/17 08:00 Sodium 142 mmol/L (136-145) 01/10/17 08:00 Potassium 4.2 mmol/L (3.5-5.1) 01/10/17 08:00 Chloride 103 mmol/L (98-107) 01/10/17 08:00 Carbon Dioxide 32 mmol/L (21-32) 01/10/17 08:00 Anion Gap 7 (8-16) L 01/10/17 08:00 BUN 10 mg/dL (7-18) 01/10/17 08:00 Creatinine 1.0 mg/dL (0.7-1.3) 01/10/17 08:00 Creat Clearance w eGFR > 60 (>60) 01/10/17 08:00 Random Glucose 111 mg/dL (74-106) H 01/10/17 08:00 Calcium 9.2 mg/dL (8.5-10.1) 01/10/17 08:00 Total Bilirubin 0.4 mg/dL (0.2-1.0) 01/10/17 08:00 AST 11 U/L (15-37) L 01/10/17 08:00 ALT 26 U/L (12-78) D 01/10/17 08:00 Alkaline Phosphatase 94 U/L (45-117) 01/10/17 08:00 Total Protein 6.8 g/dl (6.4-8.2) 01/10/17 08:00 Albumin 3.6 g/dl (3.4-5.0) 01/10/17 08:00 Urine Color Yellow 01/09/17 12:23 Urine Appearance Clear 01/09/17 12:23 Urine pH 5.0 (5.0-8.0) 01/09/17 12:23 Ur Specific [place] 1.024 (1.001-1.035) 01/09/17 12:23 Urine Protein Negative (NEGATIVE) 01/09/17 12:23 Urine Glucose (UA) Negative (NEGATIVE) 01/09/17 12:23 Urine Ketones Negative (NEGATIVE) 01/09/17 12:23 Urine Blood Negative (NEGATIVE) 01/09/17 12:23 Urine Nitrite Negative (NEGATIVE) 01/09/17 12:23 Urine Bilirubin Negative (NEGATIVE) 01/09/17 12:23 Urine Urobilinogen Negative E.U./dl (0.2-1.0) 01/09/17 12:23 Ur Leukocyte Esterase Negative (NEGATIVE) 01/09/17 12:23 RPR Titer Nonreactive (NONREACTIVE) 01/10/17 08:00 Assessment: 01/11/17 11:22 WITHDRAWAL SX Plan: CONTINUE DETOX
[2017-01-11] MEDS: THIAMINE HCL 100 MG TABLET (FP) PO SCH (22:10)
[2017-01-11] MEDS: diphenhydrAMINE HCL 50 MG CAPSULE PO PRN (22:10)
[2017-01-12] MEDS ORDERED: diphenhydrAMINE HCL 50 MG CAPSULE PO PRN (09:49)
[2017-01-12] MEDS ORDERED: METHADONE HCL 5 MG TABLET (FOR DETOX USE ONLY) PO ONE (10:00)
--- NOTE | 2017-01-12 10:07 | PN ---
BHS Progress Note (SOAP) Subjective: ANXIETY,SWEATS,INTERMITTENT SLEEP--BENADRYL 50 MG NOT EFFECTIVE. Objective: 01/12/17 10:06 Vital Signs Temperature 98 F 01/11/17 22:15 Pulse Rate 103 H 01/11/17 22:15 Respiratory Rate 18 01/12/17 09:36 Blood Pressure 126/88 01/11/17 22:15 O2 Sat by Pulse Oximetry (%) Assessment: 01/12/17 10:07 WITHDRAWAL SX Plan: CONTINUE DETOX INCREASE BENADRYL 100 MG PO HS STARTING TONIGHT.
[2017-01-12] MEDS: SERTRALINE HCL 50 MG TABLET (FP) PO SCH (10:18)
[2017-01-12] MEDS: NICOTINE 21 MG/24 HOURS TOPICAL PATCH TD SCH (10:18)
[2017-01-12] MEDS: PRENATAL VITAMINS W/ FOLIC ACID TABLET (FP) PO SCH (10:18)
[2017-01-12] MEDS: diazePAM 5 MG TABLET PO PRN (10:18)
[2017-01-12] MEDS: NICOTINE POLACRILEX 4 MG GUM BUC PRN (10:19)
[2017-01-12] MEDS: diphenhydrAMINE HCL 50 MG CAPSULE PO PRN (22:19)
[2017-01-12] MEDS: THIAMINE HCL 100 MG TABLET (FP) PO SCH (22:19)
[2017-01-13] MEDS ORDERED: METHADONE HCL 10 MG TABLET (FOR DETOX USE ONLY) PO ONE (10:00)
[2017-01-13] MEDS: SERTRALINE HCL 50 MG TABLET (FP) PO SCH (10:16)
[2017-01-13] MEDS: PRENATAL VITAMINS W/ FOLIC ACID TABLET (FP) PO SCH (10:16)
[2017-01-13] MEDS: NICOTINE 21 MG/24 HOURS TOPICAL PATCH TD SCH (10:17)
--- NOTE | 2017-01-13 10:44 | PN ---
BHS Progress Note (SOAP) Subjective: ANXIETY,SWEATS,FATIGUE. Objective: 01/13/17 10:43 Vital Signs Temperature 96.7 F L 01/13/17 09:36 Pulse Rate 102 H 01/13/17 09:36 Respiratory Rate 18 01/13/17 09:36 Blood Pressure 122/77 01/13/17 09:36 O2 Sat by Pulse Oximetry (%) Assessment: 01/13/17 10:43 WITHDRAWAL SX Plan: CONTINUE DETOX
[2017-01-13] MEDS: THIAMINE HCL 100 MG TABLET (FP) PO SCH (22:12)
[2017-01-13] MEDS: diphenhydrAMINE HCL 50 MG CAPSULE PO PRN (22:12)
[2017-01-13 22:39] VITALS: TEMP 96.8
[2017-01-14] MEDS ORDERED: METHADONE HCL 5 MG TABLET (FOR DETOX USE ONLY) PO ONE (06:00)
[2017-01-14 06:51] VITALS: BP 118/81; PULSE 92
--- NOTE | 2017-01-14 09:46 | DS ---
[facility] Detox Discharge Summary Admission Date: 01/09/17 Discharge Date: 01/14/17 - History Present History: Opioid Dependence Additional Comments: DETOX COMPLETED.ALERT O X 3. NAD. Pertinent Past History: DEPRESSION - Physical Exam Results Vital Signs: Vital Signs Temperature 96.8 F L 01/14/17 06:50 Pulse Rate 92 H 01/14/17 06:50 Respiratory Rate 18 01/14/17 06:50 Blood Pressure 118/81 01/14/17 06:50 O2 Sat by Pulse Oximetry (%) Pertinent Admission Physical Exam Findings: WITHDRAWAL SX Laboratory Last Values WBC 5.6 K/mm3 (4.0-10.0) 01/10/17 08:00 RBC 5.56 M/mm3 (4.00-5.60) 01/10/17 08:00 Hgb 14.7 GM/dL (11.7-16.9) 01/10/17 08:00 Hct 44.9 % (35.4-49) 01/10/17 08:00 MCV 80.9 fl (80-96) 01/10/17 08:00 MCHC 32.6 g/dl (32.0-35.9) 01/10/17 08:00 RDW 15.0 % (11.9-15.9) 01/10/17 08:00 Plt Count 245 K/MM3 (134-434) D 01/10/17 08:00 MPV 7.5 fl (7.5-11.1) 01/10/17 08:00 Sodium 142 mmol/L (136-145) 01/10/17 08:00 Potassium 4.2 mmol/L (3.5-5.1) 01/10/17 08:00 Chloride 103 mmol/L (98-107) 01/10/17 08:00 Carbon Dioxide 32 mmol/L (21-32) 01/10/17 08:00 Anion Gap 7 (8-16) L 01/10/17 08:00 BUN 10 mg/dL (7-18) 01/10/17 08:00 Creatinine 1.0 mg/dL (0.7-1.3) 01/10/17 08:00 Creat Clearance w eGFR > 60 (>60) 01/10/17 08:00 Random Glucose 111 mg/dL (74-106) H 01/10/17 08:00 Calcium 9.2 mg/dL (8.5-10.1) 01/10/17 08:00 Total Bilirubin 0.4 mg/dL (0.2-1.0) 01/10/17 08:00 AST 11 U/L (15-37) L 01/10/17 08:00 ALT 26 U/L (12-78) D 01/10/17 08:00 Alkaline Phosphatase 94 U/L (45-117) 01/10/17 08:00 Total Protein 6.8 g/dl (6.4-8.2) 01/10/17 08:00 Albumin 3.6 g/dl (3.4-5.0) 01/10/17 08:00 Urine Color Yellow 01/09/17 12:23 Urine Appearance Clear 01/09/17 12:23 Urine pH 5.0 (5.0-8.0) 01/09/17 12:23 Ur Specific [place] 1.024 (1.001-1.035) 01/09/17 12:23 Urine Protein Negative (NEGATIVE) 01/09/17 12:23 Urine Glucose (UA) Negative (NEGATIVE) 01/09/17 12:23 Urine Ketones Negative (NEGATIVE) 01/09/17 12:23 Urine Blood Negative (NEGATIVE) 01/09/17 12:23 Urine Nitrite Negative (NEGATIVE) 01/09/17 12:23 Urine Bilirubin Negative (NEGATIVE) 01/09/17 12:23 Urine Urobilinogen Negative E.U./dl (0.2-1.0) 01/09/17 12:23 Ur Leukocyte Esterase Negative (NEGATIVE) 01/09/17 12:23 RPR Titer Nonreactive (NONREACTIVE) 01/10/17 08:00 Hepatitis C Antibody 0.1 s/co ratio (0.0-0.9) 01/10/17 08:00 - Treatment Hospital Course: Detox Protocol Followed, Detoxed Safely, Responded well, Discharged Condition Good, Rehab Referral Accepted Patient has Accepted a Rehab Referral to: [facility] - Medication Discharge Medications: Ambulatory Orders Sertraline HCl [Zoloft -] 100 mg PO BID #120 tablet 11/03/16 Sertraline HCl [Zoloft -] 100 mg PO DAILY #30 tablet 01/09/17 - Diagnosis (1) Nicotine dependence Status: Acute Qualifiers: Nicotine product type: cigarettes Substance use status: uncomplicated Qualified Code(s): F17.210 - Nicotine dependence, cigarettes, uncomplicated (2) Opioid dependence with withdrawal Status: Acute (3) MDD (major depressive disorder) Status: Chronic (4) PTSD (post-traumatic stress disorder) Status: Chronic - AMA Did Patient Leave Against Medical Advice: No
== END 2017-01-14 09:15 | disposition home or self-care (01) | DRG 897 ==
LOC: YASAS 12:15 → Y3N 13:39
PROVIDERS: ADMIT Internal Medicine; ATTEND Internal Medicine
PROC: HZ2ZZZZ Detoxification Services for Substance Abuse Treatment (ICD-10-PCS; principal; 2017-01-14)
DX: F11.23 Opioid dependence with withdrawal (principal); F33.9 Major depressive disorder, recurrent, unspecified; F17.210 Nicotine dependence, cigarettes, uncomplicated; F19.24 Other psychoactive substance dependence with psychoactive substance-induced mood disorder; F43.10 Post-traumatic stress disorder, unspecified
CPT/HCPCS: 36415; 80053; 81003; 85027; 86593; 93005; 93010

== ENCOUNTER 2017-03-05 10:36 | Inpatient (IN) | payer MEDICARE, OTHER ==
[2017-03-05 14:23] VITALS: BMI 28.8
--- NOTE | 2017-03-05 15:36 | HP ---
COWS - Scale Resting Pulse: 1= [place] 81-100 Sweatin=Flushed/Facial Moisture Restless Observation: 1= Difficult to Sit Still Pupil Size: 0= Normal to Room Light Bone or Joint Aches: 2= Severe Diffuse Aches Runny Nose/ Eye Tearin= Runny Nose/Eyes GI Upset > 30mins: 2= Nausea/Diarrhea Tremor Observation: 2= Slight Tremor Visible Yawning Observation: 2= >3x During Session Anxiety or Irritability: 2=Irritable/Anxious Goose Flesh Skin: 3=[place]iloe[place] COWS Score: 19 Admission ROS S - HPI Chief Complaint: I am here to detox. Allergies/Adverse Reactions: Allergies Allergy/AdvReac Type Severity Reaction Status Date / Time No Known Allergies Allergy Verified 03/05/17 14:10 History of Present Illness: pt is a 51yr old male with a history of heroin dependence seeking detox for treatment. Exam Limitations: No Limitations - Ebola screening Have you traveled outside of the country in the last 21 days: No Have you had contact with anyone from an Ebola affected area: No Have you been sick,other than usual withdrawal symptoms: No Do you have a fever: No - Review of Systems Constitutional: Chills, Diaphoresis, Loss of Appetite, Unintentional Wgt. Loss EENT: reports: Nose Congestion Respiratory: reports: No Symptoms reported Cardiac: reports: No Symptoms Reported GI: reports: Diarrhea, Poor Appetite, Poor Fluid Intake : reports: No Symptoms Reported Musculoskeletal: reports: No Symptoms Reported Integumentary: reports: Flushing, Sweating Neuro: reports: Tingling, Tremors Endocrine: reports: Excessive Sweating, Flushing, Intolerance to Cold, Intolerance to Heat Hematology: reports: No Symptoms Reported Psychiatric: reports: Judgement Intact, Orientated x3, Agitated, Anxious Other Systems: Reviewed and Negative Patient History - Patient Medical History Hx Anemia: No Hx Asthma: No Hx Chronic Obstructive Pulmonary Disease (COPD): No Hx Cancer: No Hx Cardiac Disorders: No Hx Congestive Heart Failure: No Hx Hypertension: No Hx Hypercholesterolemia: No Hx Pacemaker: No HX Cerebrovascular Accident: No Hx Seizures: No Hx Dementia: No Hx Diabetes: No Hx Gastrointestinal Disorders: No Hx Liver Disease: No Hx Genitourinary Disorders: No Hx Sexually Transmitted Disorders: No Hx Renal Disease (ESRD): No Hx Thyroid Disease: No Hx Human Immunodeficiency Virus (HIV): No Hx Hepatitis C: No Hx Depression: Yes Hx Suicide Attempt: No Hx Bipolar Disorder: No Hx Schizophrenia: No - Patient Surgical History Past Surgical History: No Hx Neurologic Surgery: No Hx Cataract Extraction: No Hx Cardiac Surgery: No Hx Lung Surgery: No Hx Breast Surgery: No Hx Breast Biopsy: No Hx Abdominal Surgery: No Hx Appendectomy: No Hx Cholecystectomy: No Hx Genitourinary Surgery: No Hx Section: No Hx Orthopedic Surgery: No Anesthesia Reaction: No - PPD History Previous Implant?: Yes Documented Results: Negative w/proof Implanted On Prior [facility] Admission?: Yes Date: 10/22/16 Results: 0 mm PPD to be Administered?: No - Reproductive History Patient is a Female of Child Bearing Age (11 -55 yrs old): No - Smoking Cessation Smoking history: Current every day smoker Have you smoked in the past 12 months: Yes Aproximately how many cigarettes per day: 20 Cigars Per Day: 0 Hx Chewing Tobacco Use: No Initiated information on smoking cessation: Yes 'Breaking Loose' booklet given: 03/05/17 - Substance & Tx. History Hx Alcohol Use: No Hx Substance Use: Yes Substance Use Type: Heroin - Substances Abused Heroin Route: Inhalation Frequency: Daily Amount used: 10 bags Age of first use: 50 Date of Last Use: 03/04/17 Family Disease History - Family Disease History Family Disease History: Heart Disease: Mother (STROKE), Other: Father ( MVA, etoh hx) Admission Physical Exam BHS - Vital Signs Vital Signs: Vital Signs - 24 hr 03/05/17 14:19 Temperature 97.0 F L Pulse Rate 91 H Respiratory 20 Rate Blood Pressure 144/81 - Physical General Appearance: Yes: Appropriately Dressed, Moderate Distress, Tremorous, Irritable, Sweating, Anxious HEENTM: Yes: Hearing grossly Normal, Nasal Congestion Respiratory: Yes: Lungs Clear, Normal Breath Sounds, No Respiratory Distress Neck: Yes: No masses,lesions,Nodules Breast: Yes: Within Normal Limits Cardiology: Yes: Regular Rhythm, Regular Rate, S1, S2 Abdominal: Yes: Normal Bowel Sounds, Non Tender, Soft Genitourinary: Yes: Within Normal Limits Back: Yes: Normal Inspection Musculoskeletal: Yes: full range of Motion Extremities: Yes: Normal Capillary Refill, Tremors 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: Yes: Fully Oriented, Alert, Normal Response Integumentary: Yes: Normal Color, Diaphoresis Lymphatic: Yes: Within Normal Limits - Diagnostic (1) Nicotine dependence Current Visit: Yes Status: Chronic Qualifiers: Nicotine product type: cigarettes Substance use status: uncomplicated Qualified Code(s): F17.210 - Nicotine dependence, cigarettes, uncomplicated (2) Opioid dependence with withdrawal Current Visit: Yes Status: Chronic Cleared for Admission [facility] - Detox or Rehab [facility] Level of Care: Medically Managed Detox Regimen/Protocol: Methadone [facility] Breath Alcohol Content Breath Alcohol Content: 0 Urine Drug Screen - Results Drug Screen Negative: No Urine Drug Screen Results: OPI-Opiates
[2017-03-05] MEDS ORDERED: guaiFENesin/D-METHORPHAN HB 10 ML UNIT-DOSE CUPS PO PRN (15:38)
[2017-03-05] MEDS ORDERED: MENTHOL/PHENOL 1 EACH UD MM PRN (15:38)
[2017-03-05] MEDS ORDERED: diphenhydrAMINE HCL 50 MG CAPSULE PO PRN (15:38)
[2017-03-05] MEDS ORDERED: P-EPHED 60MG/TRIPROLIDI 2.5MG TABLET PO PRN (15:38)
[2017-03-05] MEDS ORDERED: MAG HYDROX/AL HYDROX/SIMETH 30 ML UNIT-DOSE CUP PO PRN (15:38)
[2017-03-05] MEDS ORDERED: hydrOXYzine PAMOATE 50 MG CAPSULE (FP) PO PRN (15:38)
[2017-03-05] MEDS ORDERED: ACETAMINOPHEN 325 MG TABLET (FP) PO PRN (15:38)
[2017-03-05] MEDS ORDERED: MAGNESIUM HYDROX 2400MG/30ML ORAL SUSPENSION 30 ML CUP PO PRN (15:38)
[2017-03-05] MEDS ORDERED: MAGNESIUM CITRATE 300 ML BOTTLE PO PRN (15:38)
[2017-03-05] MEDS ORDERED: IBUPROFEN 400 MG TABLET (FP) PO PRN (15:38)
[2017-03-05] MEDS ORDERED: LOPERAMIDE HCL 2 MG CAPSULE PO PRN (15:38)
[2017-03-05] MEDS ORDERED: METHADONE HCL 10 MG TABLET (FOR DETOX USE ONLY) PO ONE ×2 (15:43→23:00)
[2017-03-05 22:25] LABS: URINE APPEARANCE CLEAR; URINE BILIRUBIN NEGATIVE (NEGATIVE); URINE BLOOD NEGATIVE (NEGATIVE); URINE COLOR YELLOW; URINE GLUCOSE (UA) NEGATIVE (NEGATIVE); URINE KETONE TRACE (NEGATIVE); URINE LEUK ESTERASE NEGATIVE (NEGATIVE); URINE NITRITE NEGATIVE (NEGATIVE); URINE PROTEIN NEGATIVE (NEGATIVE); URINE UROBILINOGEN NEGATIVE E.U./dl (0.2-1.0)
[2017-03-05] MEDS: THIAMINE HCL 100 MG TABLET (FP) PO SCH (22:52)
[2017-03-06] MEDS ORDERED: METHADONE HCL 10 MG TABLET (FOR DETOX USE ONLY) PO ONE (10:00)
[2017-03-06 10:16] LABS: MCH 26.9 pg (25.7-33.7); MCHC 33.1 g/dl (32.0-35.9); MEAN CELL VOLUME 81.1 fl (80-96); MEAN PLT VOLUME 7.7 fl (7.5-11.1); PLATELET COUNT 304 K/MM3 (134-434); RDW 14.9 % (11.9-15.9)
[2017-03-06 10:29] LABS: ALK PHOS 106 U/L (45-117); ANION GAP 9 (8-16); BILIRUBIN,TOTAL 0.3 mg/dL (0.2-1.0); CALCIUM 9.6 mg/dL (8.5-10.1); CO2 31 mmol/L (21-32); COCKROFT - GAULT 143.32; CREATININE 0.9 mg/dL (0.7-1.3); GLUCOSE,RANDOM 118 mg/dL (74-106); SGOT/AST 14 U/L (15-37); SGPT/ALT 25 U/L (12-78); TOT PROT 7.4 g/dl (6.4-8.2)
[2017-03-06] MEDS: PRENATAL VITAMINS W/ FOLIC ACID TABLET (FP) PO SCH (10:54)
[2017-03-06] MEDS: NICOTINE 21 MG/24 HOURS TOPICAL PATCH TD SCH (10:54)
[2017-03-06] MEDS: diazePAM 5 MG TABLET PO PRN ×2 (10:56→22:44)
[2017-03-06] MEDS: NICOTINE POLACRILEX 4 MG GUM BUC PRN ×2 (10:56→22:46)
--- NOTE | 2017-03-06 15:00 | PN ---
[facility] COWS - Scale Resting Pulse: 1= [place] 81-100 Sweatin=Flushed/Facial Moisture Restless Observation: 1= Difficult to Sit Still Pupil Size: 0= Normal to Room Light Bone or Joint Aches: 1= Mild Discomfort Runny Nose/ Eye Tearin= Runny Nose/Eyes GI Upset > 30mins: 2= Nausea/Diarrhea Tremor Observation of Outstretched Hands: 2= Slight Tremor Visible Yawning Observation: 1= 1-2x During Session Anxiety or Irritability: 1=Feels Anxious/Irritable Goose Flesh Skin: 3=Piloerection COWS Score: 16 [facility] Progress Note (SOAP) Subjective: Shakes, sweats, generalized pain and weakness, anxiety Objective: 03/06/17 14:59 Vital Signs - 8 hr 03/06/17 10:57 Temperature 98.2 F Pulse Rate 106 H Respiratory 16 Rate Blood Pressure 126/98 Laboratory Last Values WBC 6.0 K/mm3 (4.0-10.0) 03/06/17 06:10 RBC 5.37 M/mm3 (4.00-5.60) 03/06/17 06:10 Hgb 14.4 GM/dL (11.7-16.9) 03/06/17 06:10 Hct 43.6 % (35.4-49) 03/06/17 06:10 MCV 81.1 fl (80-96) 03/06/17 06:10 MCHC 33.1 g/dl (32.0-35.9) 03/06/17 06:10 RDW 14.9 % (11.9-15.9) 03/06/17 06:10 Plt Count 304 K/MM3 (134-434) D 03/06/17 06:10 MPV 7.7 fl (7.5-11.1) 03/06/17 06:10 Sodium 138 mmol/L (136-145) 03/06/17 06:10 Potassium 4.1 mmol/L (3.5-5.1) 03/06/17 06:10 Chloride 98 mmol/L (98-107) 03/06/17 06:10 Carbon Dioxide 31 mmol/L (21-32) 03/06/17 06:10 Anion Gap 9 (8-16) 03/06/17 06:10 BUN 9 mg/dL (7-18) 03/06/17 06:10 Creatinine 0.9 mg/dL (0.7-1.3) 03/06/17 06:10 Creat Clearance w eGFR > 60 (>60) 03/06/17 06:10 Random Glucose 118 mg/dL (74-106) H 03/06/17 06:10 Calcium 9.6 mg/dL (8.5-10.1) 03/06/17 06:10 Total Bilirubin 0.3 mg/dL (0.2-1.0) D 03/06/17 06:10 AST 14 U/L (15-37) L D 03/06/17 06:10 ALT 25 U/L (12-78) 03/06/17 06:10 Alkaline Phosphatase 106 U/L (45-117) 03/06/17 06:10 Total Protein 7.4 g/dl (6.4-8.2) 03/06/17 06:10 Albumin 4.0 g/dl (3.4-5.0) 03/06/17 06:10 Urine Color Yellow 03/05/17 21:30 Urine Appearance Clear 03/05/17 21:30 Urine pH 5.0 (5.0-8.0) 03/05/17 21:30 Ur Specific [place] 1.020 (1.001-1.035) 03/05/17 21:30 Urine Protein Negative (NEGATIVE) 03/05/17 21:30 Urine Glucose (UA) Negative (NEGATIVE) 03/05/17 21:30 Urine Ketones Trace (NEGATIVE) H 03/05/17 21:30 Urine Blood Negative (NEGATIVE) 03/05/17 21:30 Urine Nitrite Negative (NEGATIVE) 03/05/17 21:30 Urine Bilirubin Negative (NEGATIVE) 03/05/17 21:30 Urine Urobilinogen Negative E.U./dl (0.2-1.0) 03/05/17 21:30 Ur Leukocyte Esterase Negative (NEGATIVE) 03/05/17 21:30 RPR Titer Nonreactive (NONREACTIVE) 03/06/17 06:10 Labs noted Assessment: 03/06/17 14:59 withdrawal sx Plan: continue detox
--- NOTE | 2017-03-06 17:07 | CONSULT ---
[facility] Psychiatric Consult - Data Date of interview: 03/06/17 Admission source: [facility] Identifying data: [place] [facility] [place] 51 y/[place] AA male seeking detox treatment on for heroin dependence.Patient is single without children,domiciled,unemployed and supported on SSI benefits. Substance Abuse History: - Smoking Cessation. Smoking history: Current every day smoker. Have you smoked in the past 12 months: Yes. Aproximately how many cigarettes per day: 20. Cigars Per Day: 0. Hx Chewing Tobacco Use: No. Initiated information on smoking cessation: Yes. 'Breaking Loose' booklet given : 03/05/17. - Substance & Tx. History. Hx Alcohol Use: No. Hx Substance Use: Yes. Substance Use Type: Heroin. - Substances Abused. Heroin. Route: Inhalation. Frequency: Daily. Amount used: 10 bags. Age of first use: 50. Date of Last Use: 03/04/17. Confirmed by patient. Medical History: Patient denies medical problems. Psychiatric History: No history of psychiatric hospitalizations.Diagnosed with MDD/PTSD.Patient reports sporadic contact with his private psychiatrist ( managed on [employer] 2oft 100 m/day) who is currently in [place].No OPD care provider in [place].Mr Alejandro reports a history of suicide attempt via overdose with drugs (at age 40). Physical/Sexual Abuse/Trauma History: Patient denies. Additional Comment: Urine Drug Screen Results: OPI-Opiates.Noted. Mental Status Exam - Mental Status Exam Alert and Oriented to: Time, Place, Person Cognitive Function: Good Patient Appearance: Well Groomed Mood: Withdrawn, Anxious Affect: Mood Congruent Patient Behavior: Fatigued, Appropriate, Cooperative Speech Pattern: Clear Voice Loudness: Normal Thought Process: Goal Oriented Thought Disorder: Not Present Hallucinations: Denies Suicidal Ideation: Denies Homicidal Ideation: Denies Insight/Judgement: Poor Sleep: Poorly, Difficulty falling asleep (requests ambien) Appetite: Good Muscle strength/Tone: Normal Gait/Station: Normal Psychiatric Findings - Problem List ([place] 1, 2,3) (1) Opioid dependence with withdrawal Current Visit: Yes Status: Acute (2) Nicotine dependence Current Visit: Yes Status: Acute Qualifiers: Nicotine product type: cigarettes Substance use status: uncomplicated Qualified Code(s): F17.210 - Nicotine dependence, cigarettes, uncomplicated (3) Substance induced mood disorder Current Visit: Yes Status: Acute (4) PTSD (post-traumatic stress disorder) Current Visit: Yes Status: Chronic Comment: Self-report. (5) MDD (major depressive disorder) Current Visit: Yes Status: Chronic Comment: History. (6) Insomnia Current Visit: Yes Status: Acute - Initial Treatment Plan Initial Treatment Plan: Psychoeducation.Detoxification.Medications : zoloft 100 mg po hs + ambien 10 mg po hs.Patient is made aware of potential for parasomnias (zolpidem) and suicidal ideation/sexual dysfunction.He agrees with careplan.Observation.
[2017-03-06] MEDS: THIAMINE HCL 100 MG TABLET (FP) PO SCH (22:44)
[2017-03-06] MEDS: ZOLPIDEM TARTRATE 10 MG TABLET (PARK CARE ONLY) PO SCH (22:44)
[2017-03-07] MEDS: diazePAM 5 MG TABLET PO PRN ×2 (06:53→19:38)
[2017-03-07] MEDS ORDERED: METHADONE HCL 5 MG TABLET (FOR DETOX USE ONLY) PO ONE (10:00)
[2017-03-07] MEDS: SERTRALINE HCL 50 MG TABLET (FP) PO SCH (10:41)
[2017-03-07] MEDS: PRENATAL VITAMINS W/ FOLIC ACID TABLET (FP) PO SCH (10:41)
[2017-03-07] MEDS: NICOTINE 21 MG/24 HOURS TOPICAL PATCH TD SCH (10:42)
[2017-03-07] MEDS: NICOTINE POLACRILEX 4 MG GUM BUC PRN (10:43)
--- NOTE | 2017-03-07 13:33 | PN ---
BHS COWS - Scale Resting Pulse: 2= [place] 101-120 Sweatin=Flushed/Facial Moisture Restless Observation: 1= Difficult to Sit Still Pupil Size: 0= Normal to Room Light Bone or Joint Aches: 2= Severe Diffuse Aches Runny Nose/ Eye Tearin= Runny Nose/Eyes GI Upset > 30mins: 2= Nausea/Diarrhea Tremor Observation of Outstretched Hands: 2= Slight Tremor Visible Yawning Observation: 1= 1-2x During Session Anxiety or Irritability: 2=Irritable/Anxious Goose Flesh Skin: 0=Smooth Skin COWS Score: 16 [facility] Progress Note (SOAP) Subjective: Anxiety,tremors,sweating,interrupted sleep,restless Objective: 03/07/17 13:32 Vital Signs - 8 hr 03/07/17 03/07/17 06:00 09:56 Temperature 98.1 F 98.2 F Pulse Rate 87 102 H Respiratory 18 18 Rate Blood Pressure 128/86 130/90 Laboratory Tests 03/05/17 03/06/17 03/06/17 21:30 06:10 06:10 WBC 6.0 RBC 5.37 Hgb 14.4 Hct 43.6 MCV 81.1 MCHC 33.1 RDW 14.9 Plt Count 304 D MPV 7.7 Sodium 138 Potassium 4.1 Chloride 98 Carbon Dioxide 31 Anion Gap 9 BUN 9 Creatinine 0.9 Creat Clearance w eGFR > 60 Random Glucose 118 H Calcium 9.6 Total Bilirubin 0.3 D AST 14 L D ALT 25 Alkaline Phosphatase 106 Total Protein 7.4 Albumin 4.0 Urine Color Yellow Urine Appearance Clear Urine pH 5.0 Ur Specific [place] 1.020 Urine Protein Negative Urine Glucose (UA) Negative Urine Ketones Trace H Urine Blood Negative Urine Nitrite Negative Urine Bilirubin Negative Urine Urobilinogen Negative Ur Leukocyte Esterase Negative RPR Titer 03/06/17 06:10 WBC RBC Hgb Hct MCV MCHC RDW Plt Count MPV Sodium Potassium Chloride Carbon Dioxide Anion Gap BUN Creatinine Creat Clearance w eGFR Random Glucose Calcium Total Bilirubin AST ALT Alkaline Phosphatase Total Protein Albumin Urine Color Urine Appearance Urine pH Ur Specific [place] Urine Protein Urine Glucose (UA) Urine Ketones Urine Blood Urine Nitrite Urine Bilirubin Urine Urobilinogen Ur Leukocyte Esterase RPR Titer Nonreactive labs noted Assessment: 03/07/17 13:33 Withdrawal sx. Plan: Continue detox
[2017-03-07] MEDS: ZOLPIDEM TARTRATE 10 MG TABLET (PARK CARE ONLY) PO SCH (22:35)
[2017-03-07] MEDS: THIAMINE HCL 100 MG TABLET (FP) PO SCH (22:35)
[2017-03-08] MEDS: diazePAM 5 MG TABLET PO PRN ×2 (07:17→10:50)
--- NOTE | 2017-03-08 09:12 | EKG ---
Test Reason : Blood Pressure : / mmHG Vent. Rate : 081 BPM Atrial Rate : 081 BPM P-R Int : 148 ms QRS Dur : 082 ms QT Int : 374 ms P-R-T Axes : 063 028 036 degrees QTc Int : 434 ms NORMAL SINUS RHYTHM POSSIBLE LEFT ATRIAL ENLARGEMENT BORDERLINE ECG WHEN COMPARED WITH ECG OF 09-JAN-2017 15:10, ST NO LONGER ELEVATED IN ANTERIOR LEADS NONSPECIFIC T WAVE ABNORMALITY NO LONGER EVIDENT IN INFERIOR LEADS Confirmed by JODI GUZMAN MD ([id number]) on 03/08/2017 9:11:38 AM Referred By: Confirmed By:JODI GUZMAN MD
[2017-03-08] MEDS ORDERED: METHADONE HCL 5 MG TABLET (FOR DETOX USE ONLY) PO ONE (10:00)
[2017-03-08] MEDS: PRENATAL VITAMINS W/ FOLIC ACID TABLET (FP) PO SCH (10:49)
[2017-03-08] MEDS: NICOTINE 21 MG/24 HOURS TOPICAL PATCH TD SCH (10:49)
[2017-03-08] MEDS: SERTRALINE HCL 50 MG TABLET (FP) PO SCH (10:49)
[2017-03-08] MEDS: NICOTINE POLACRILEX 4 MG GUM BUC PRN (10:50)
--- NOTE | 2017-03-08 11:24 | PN ---
[facility] Progress Note (SOAP) Subjective: sweats body aches interrupted sleep irritable agitation Objective: 03/08/17 11:23 Vital Signs Temperature 98.8 F 03/08/17 10:03 Pulse Rate 103 H 03/08/17 10:03 Respiratory Rate 18 03/08/17 10:03 Blood Pressure 126/81 03/08/17 10:03 O2 Sat by Pulse Oximetry (%) Laboratory Tests 03/05/17 03/06/17 03/06/17 21:30 06:10 06:10 WBC 6.0 RBC 5.37 Hgb 14.4 Hct 43.6 MCV 81.1 MCHC 33.1 RDW 14.9 Plt Count 304 D MPV 7.7 Sodium 138 Potassium 4.1 Chloride 98 Carbon Dioxide 31 Anion Gap 9 BUN 9 Creatinine 0.9 Creat Clearance w eGFR > 60 Random Glucose 118 H Calcium 9.6 Total Bilirubin 0.3 D AST 14 L D ALT 25 Alkaline Phosphatase 106 Total Protein 7.4 Albumin 4.0 Urine Color Yellow Urine Appearance Clear Urine pH 5.0 Ur Specific [place] 1.020 Urine Protein Negative Urine Glucose (UA) Negative Urine Ketones Trace H Urine Blood Negative Urine Nitrite Negative Urine Bilirubin Negative Urine Urobilinogen Negative Ur Leukocyte Esterase Negative RPR Titer 03/06/17 06:10 WBC RBC Hgb Hct MCV MCHC RDW Plt Count MPV Sodium Potassium Chloride Carbon Dioxide Anion Gap BUN Creatinine Creat Clearance w eGFR Random Glucose Calcium Total Bilirubin AST ALT Alkaline Phosphatase Total Protein Albumin Urine Color Urine Appearance Urine pH Ur Specific [place] Urine Protein Urine Glucose (UA) Urine Ketones Urine Blood Urine Nitrite Urine Bilirubin Urine Urobilinogen Ur Leukocyte Esterase RPR Titer Nonreactive awake/alert ambulating no acute distress Assessment: 03/08/17 11:23 withdrawal sx Plan: continue detox increase fluids
[2017-03-08] MEDS: ZOLPIDEM TARTRATE 10 MG TABLET (PARK CARE ONLY) PO SCH (22:41)
[2017-03-08] MEDS: THIAMINE HCL 100 MG TABLET (FP) PO SCH (22:41)
[2017-03-09 06:16] VITALS: BP 123/79; PULSE 86; TEMP 97.6
[2017-03-09] MEDS: SERTRALINE HCL 50 MG TABLET (FP) PO SCH (09:43)
[2017-03-09] MEDS: PRENATAL VITAMINS W/ FOLIC ACID TABLET (FP) PO SCH (09:44)
[2017-03-09] MEDS: NICOTINE 21 MG/24 HOURS TOPICAL PATCH TD SCH (09:44)
--- NOTE | 2017-03-09 09:52 | DS ---
[facility] Detox Discharge Summary Admission Date: 03/05/17 Discharge Date: 03/09/17 - History Present History: Opioid Dependence - Physical Exam Results Vital Signs: Vital Signs Temperature 97.6 F 03/09/17 06:16 Pulse Rate 86 03/09/17 06:16 Respiratory Rate 18 03/09/17 06:16 Blood Pressure 123/79 03/09/17 06:16 O2 Sat by Pulse Oximetry (%) - Treatment Hospital Course: Detox Protocol Followed, Detoxed Safely, Responded well, Discharged Condition Good - Medication Discharge Medications: Ambulatory Orders Sertraline HCl [Zoloft -] 100 mg PO DAILY #30 tablet 01/09/17 Sertraline HCl [Zoloft] 100 mg PO HS #30 tablet 03/06/17 - Diagnosis (1) Insomnia Current Visit: Yes Status: Acute Qualifiers: Insomnia type: unspecified Qualified Code(s): G47.00 - Insomnia, unspecified (2) Nicotine dependence Current Visit: Yes Status: Chronic Qualifiers: Nicotine product type: cigarettes Substance use status: uncomplicated Qualified Code(s): F17.210 - Nicotine dependence, cigarettes, uncomplicated (3) Opioid dependence with withdrawal Current Visit: Yes Status: Chronic (4) PTSD (post-traumatic stress disorder) Current Visit: Yes Status: Chronic (5) Depression Current Visit: Yes Status: Chronic Qualifiers: Depression Type: unspecified Qualified Code(s): F32.9 - Major depressive disorder, single episode, unspecified - AMA Did Patient Leave Against Medical Advice: No (BUT PT D/C'ED EARLY BECAUSE OF JOB RESPONSIBILITIES )
[2017-03-09] MEDS ORDERED: METHADONE HCL 10 MG TABLET (FOR DETOX USE ONLY) PO ONE (10:00)
[2017-03-10] MEDS ORDERED: METHADONE HCL 5 MG TABLET (FOR DETOX USE ONLY) PO ONE (06:00)
== END 2017-03-09 10:05 | disposition home or self-care (01) | DRG 897 ==
LOC: YASAS 10:36 → Y6N 15:12
PROVIDERS: ADMIT Internal Medicine; ATTEND Internal Medicine
PROC: HZ2ZZZZ Detoxification Services for Substance Abuse Treatment (ICD-10-PCS; principal; 2017-03-05)
DX: F11.23 Opioid dependence with withdrawal (principal); F33.9 Major depressive disorder, recurrent, unspecified; F17.210 Nicotine dependence, cigarettes, uncomplicated; F43.10 Post-traumatic stress disorder, unspecified; G47.00 Insomnia, unspecified
CPT/HCPCS: 36415; 80053; 81003; 85027; 86593; 93005; 93010

== ENCOUNTER 2017-06-07 08:56 | Inpatient (IN) | payer MEDICARE, OTHER ==
[2017-06-07 09:23] VITALS: BMI 29.5
--- NOTE | 2017-06-07 12:45 | HP ---
COWS - Scale Resting Pulse: 0= [place] 80 or Below Sweatin= Chills/Flushing Restless Observation: 3= Extraneous Movement Pupil Size: 2= Moderately Dilated Bone or Joint Aches: 4=Acute Joint/Muscle Pain Runny Nose/ Eye Tearin= Nasal Congestion GI Upset > 30mins: 2= Nausea/Diarrhea Tremor Observation: 1= Tremor [place], Not Seen Yawning Observation: 1= 1-2x During Session Anxiety or Irritability: 2=Irritable/Anxious Goose Flesh Skin: 0=Smooth Skin COWS Score: 17 Admission [facility] Chief Complaint: DETOX TX FOR HEROIN DEPENDENCE Allergies/Adverse Reactions: Allergies Allergy/AdvReac Type Severity Reaction Status Date / Time No Known Allergies Allergy Verified 06/07/17 11:31 History of Present Illness: 51 Y/O MALE WITH A HX OF HEROIN DEPENDENCE SEEKING DETOX [place] Exam Limitations: No Limitations - Ebola screening Have you traveled outside of the country in the last 21 days: No Have you had contact with anyone from an Ebola affected area: No Have you been sick,other than usual withdrawal symptoms: No Do you have a fever: No - Review of Systems Constitutional: Chills, Loss of Appetite, Night Sweats, Changes in sleep EENT: reports: Blurred Vision (ROOT CANAL SX), Tearing, Nose Congestion, Dental Problems Respiratory: reports: No Symptoms reported Cardiac: reports: No Symptoms Reported GI: reports: Constipated, Diarrhea, Nausea, Poor Appetite, Vomiting, Abdominal cramping : reports: Dysuria Musculoskeletal: reports: Back Pain, Joint Pain, Muscle Pain Integumentary: reports: No Symptoms Reported Neuro: reports: Headache, Numbness, Tingling, Unsteady Gait, Dizziness Endocrine: reports: No Symptoms Reported Hematology: reports: No Symptoms Reported Psychiatric: reports: Orientated x3, Anxious, Depressed Other Systems: Reviewed and Negative Patient History - Patient Medical History Hx Anemia: No Hx Asthma: No Hx Chronic Obstructive Pulmonary Disease (COPD): No Hx Cancer: No Hx Cardiac Disorders: No Hx Congestive Heart Failure: No Hx Hypertension: No Hx Hypercholesterolemia: No Hx Pacemaker: No HX Cerebrovascular Accident: No Hx Seizures: No Hx Dementia: No Hx Diabetes: No Hx Gastrointestinal Disorders: No Hx Liver Disease: No Hx Genitourinary Disorders: No Hx Sexually Transmitted Disorders: No Hx Renal Disease (ESRD): No Hx Thyroid Disease: No Hx Human Immunodeficiency Virus (HIV): No Hx Hepatitis C: No Hx Depression: Yes (ON MED) Hx Suicide Attempt: No Hx Bipolar Disorder: No Hx Schizophrenia: No Other Medical History: HX PTSD - Patient Surgical History Past Surgical History: No Hx Neurologic Surgery: No Hx Cataract Extraction: No Hx Cardiac Surgery: No Hx Lung Surgery: No Hx Breast Surgery: No Hx Breast Biopsy: No Hx Abdominal Surgery: No Hx Appendectomy: No Hx Cholecystectomy: No Hx Genitourinary Surgery: No Hx Orthopedic Surgery: No Anesthesia Reaction: No - PPD History Previous Implant?: Yes Documented Results: Negative w/proof Implanted On Prior [facility] Admission?: Yes Date: 10/22/16 Results: 0 mm PPD to be Administered?: No - Reproductive History Patient is a Female of Child Bearing Age (11 -55 yrs old): No (MALE) Patient : (N/A) - Smoking Cessation Smoking history: Current every day smoker Have you smoked in the past 12 months: Yes Aproximately how many cigarettes per day: 20 Cigars Per Day: 0 Hx Chewing Tobacco Use: No Initiated information on smoking cessation: Yes 'Breaking Loose' booklet given: 06/07/17 - Substance & Tx. History Hx Alcohol Use: No (DENIES) Hx Substance Use: Yes (HEROIN) Substance Use Type: Heroin Hx Substance Use Treatment: Yes (LAST TX AT [facility] DETOX) - Substances Abused Heroin Route: Inhalation Frequency: Daily Amount used: 20 bags Age of first use: 50 Date of Last Use: 06/06/17 Family Disease History - Family Disease History Family Disease History: Heart Disease: Mother (STROKE), Other: Father ( MVA, etoh hx) Admission Physical Exam [facility] - Vital Signs Vital Signs: Vital Signs - 24 hr 06/07/17 09:15 Temperature 98.4 F Pulse Rate 76 Respiratory 20 Rate Blood Pressure 125/80 - Physical General Appearance: Yes: Moderate Distress, Irritable, Anxious HEENTM: Yes: EOMI, Normocephalic, MARCELLA, Pharynx Normal, Nasal Congestion Respiratory: Yes: Chest Non-Tender, Lungs Clear, Normal Breath Sounds, No Respiratory Distress Neck: Yes: Supple, Trachea in good position Breast: Yes: Breast Exam Deferred Cardiology: Yes: Regular Rhythm, Regular Rate, S1, S2 Abdominal: Yes: Normal Bowel Sounds, Non Tender, Soft Genitourinary: Yes: Other (N/A) Musculoskeletal: Yes: full range of Motion, Gait Steady Extremities: Yes: Normal Range of Motion, Non-Tender 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: 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 intact, Fully Oriented, Alert, Motor Strength 5/5 Integumentary: Yes: Dry, Warm Lymphatic: Yes: Within Normal Limits - Diagnostic (1) Nicotine dependence Current Visit: Yes Status: Acute Qualifiers: Nicotine product type: cigarettes Substance use status: in withdrawal Qualified Code(s): F17.213 - Nicotine dependence, cigarettes, with withdrawal (2) Opioid dependence with withdrawal Current Visit: Yes Status: Acute Cleared for Admission [facility] - Detox or Rehab [facility] Level of Care: Medically Managed Detox Regimen/Protocol: Methadone [facility] Breath Alcohol Content Breath Alcohol Content: 0 Urine Drug Screen - Results Drug Screen Negative: No Urine Drug Screen Results: OPI-Opiates, MTD-Methadone
[2017-06-07] MEDS ORDERED: guaiFENesin/D-METHORPHAN HB 10 ML UNIT-DOSE CUPS PO PRN (12:50)
[2017-06-07] MEDS ORDERED: IBUPROFEN 400 MG TABLET (FP) PO PRN (12:50)
[2017-06-07] MEDS ORDERED: P-EPHED 60MG/TRIPROLIDI 2.5MG TABLET PO PRN (12:50)
[2017-06-07] MEDS ORDERED: diphenhydrAMINE HCL 50 MG CAPSULE PO PRN (12:50)
[2017-06-07] MEDS ORDERED: LOPERAMIDE HCL 2 MG CAPSULE PO PRN (12:50)
[2017-06-07] MEDS ORDERED: hydrOXYzine PAMOATE 50 MG CAPSULE (FP) PO PRN (12:50)
[2017-06-07] MEDS ORDERED: MAG HYDROX/AL HYDROX/SIMETH 30 ML UNIT-DOSE CUP PO PRN (12:50)
[2017-06-07] MEDS ORDERED: ACETAMINOPHEN 325 MG TABLET (FP) PO PRN (12:50)
[2017-06-07] MEDS ORDERED: MAGNESIUM CITRATE 300 ML BOTTLE PO PRN (12:50)
[2017-06-07] MEDS ORDERED: MAGNESIUM HYDROX 2400MG/30ML ORAL SUSPENSION 30 ML CUP PO PRN (12:50)
[2017-06-07] MEDS ORDERED: MENTHOL/PHENOL 1 EACH UD MM PRN (12:50)
[2017-06-07] MEDS ORDERED: NICOTINE POLACRILEX 4 MG GUM BC PRN (12:50)
[2017-06-07] MEDS ORDERED: METHADONE HCL 10 MG TABLET (FOR DETOX USE ONLY) PO ONE ×2 (14:00→23:00)
[2017-06-07] MEDS: diazePAM 5 MG TABLET PO PRN ×2 (15:01→22:15)
[2017-06-07] MEDS: NICOTINE 21 MG/24 HOURS TOPICAL PATCH TD SCH (15:03)
[2017-06-07] MEDS: THIAMINE HCL 100 MG TABLET (FP) PO SCH (22:15)
[2017-06-07 22:39] LABS: URINE APPEARANCE CLEAR; URINE BILIRUBIN NEGATIVE (NEGATIVE); URINE BLOOD NEGATIVE (NEGATIVE); URINE COLOR YELLOW; URINE GLUCOSE (UA) NEGATIVE (NEGATIVE); URINE KETONE NEGATIVE (NEGATIVE); URINE LEUK ESTERASE NEGATIVE (NEGATIVE); URINE NITRITE NEGATIVE (NEGATIVE); URINE PROTEIN NEGATIVE (NEGATIVE); URINE UROBILINOGEN NEGATIVE mg/dL (0.2-1.0)
[2017-06-08 09:43] LABS: HIV 1 & 2 AB NEGATIVE; HIV 1 AGp24 NEGATIVE
[2017-06-08] MEDS ORDERED: METHADONE HCL 10 MG TABLET (FOR DETOX USE ONLY) PO ONE (10:00)
[2017-06-08] MEDS: diazePAM 5 MG TABLET PO PRN (10:12)
[2017-06-08] MEDS: PRENATAL VITAMINS W/ FOLIC ACID TABLET (FP) PO SCH (10:12)
[2017-06-08] MEDS: NICOTINE 21 MG/24 HOURS TOPICAL PATCH TD SCH (10:13)
--- NOTE | 2017-06-08 10:24 | PN ---
BHS COWS - Scale Resting Pulse: 1= [place] 81-100 Sweatin=Flushed/Facial Moisture Restless Observation: 1= Difficult to Sit Still Pupil Size: 0= Normal to Room Light Bone or Joint Aches: 1= Mild Discomfort Runny Nose/ Eye Tearin= Nasal Congestion GI Upset > 30mins: 1= Stomach Cramp Tremor Observation of Outstretched Hands: 2= Slight Tremor Visible Yawning Observation: 1= 1-2x During Session Anxiety or Irritability: 2=Irritable/Anxious Goose Flesh Skin: 0=Smooth Skin COWS Score: 12 [facility] Progress Note (SOAP) Subjective: Anxiety,tremors,sweating,interrupted sleep,muscle aches. Objective: 06/08/17 10:23 Vital Signs - 8 hr 06/08/17 06/08/17 04:07 09:32 Temperature 96.8 F L Pulse Rate 100 H Respiratory 18 18 Rate Blood Pressure 143/91 Laboratory Tests 06/07/17 06/07/17 12:20 22:20 Urine Color Yellow Urine Appearance Clear Urine pH 5.0 Urine Protein Negative Urine Glucose (UA) Negative Urine Ketones Negative Urine Blood Negative Urine Nitrite Negative Urine Bilirubin Negative Urine Urobilinogen Negative Ur Leukocyte Esterase Negative HIV 1&2 Antibody Screen Negative HIV P24 Antigen Negative Assessment: 06/08/17 10:23 Withdrawal sx. Plan: Continue detox
[2017-06-08 12:29] LABS: MCH 26.7 pg (25.7-33.7); MEAN PLT VOLUME 7.8 fl (7.5-11.1); PLATELET COUNT 307 K/MM3 (134-434); RDW 14.5 % (11.9-15.9); WHITE BLOOD COUNT 5.3 K/mm3 (4.0-10.0)
[2017-06-08 12:44] LABS: ALK PHOS 112 U/L (45-117); ANION GAP 8 (8-16); BILIRUBIN,TOTAL 0.7 mg/dL (0.2-1.0); CALCIUM 9.1 mg/dL (8.5-10.1); CO2 28 mmol/L (21-32); CREATININE 0.8 mg/dL (0.7-1.3); GLUCOSE,RANDOM 107 mg/dL (74-106); SGOT/AST 19 U/L (15-37); SGPT/ALT 32 U/L (12-78); TOT PROT 7.6 g/dl (6.4-8.2)
--- NOTE | 2017-06-08 13:02 | CONSULT ---
[facility] Psychiatric Consult - Data Date of interview: 06/08/17 Admission source: [facility] Identifying data: Another admission to [facility] for this 51 y/o AA male seeking detox treatment on for heroin dependence.Patient is single without children,domiciled,unemployed and supported on SSI benefits. Substance Abuse History: Discussed with patient in this session : Smoking Cessation. Smoking history: Current every day smoker. Have you smoked in the past 12 months: Yes. Aproximately how many cigarettes per day: 20. Cigars Per Day: 0. Hx Chewing Tobacco Use: No. Initiated information on smoking cessation : Yes. 'Breaking Loose' booklet given: 06/07/17. - Substance & Tx. History. Hx Alcohol Use: No (DENIES). Hx Substance Use: Yes (HEROIN). Substance Use Type: Heroin. Hx Substance Use Treatment: Yes (LAST TX AT [facility] DETOX). - Substances Abused. Heroin. Route: Inhalation. Frequency: Daily. Amount used: 20 bags. Age of first use: 50. Date of Last Use: 06/06/17 Medical History: Patient endorses good general health. Psychiatric History: Patient admits to one psychiatric hospitalization at [facility].Diagnosed with MDD/PTSD.No details offered.Mr Allen remains a hostile and marginally cooperative historian.Difficult to follow.No OPD care at this time.Chronically non-adherent to medications but willing to resume zoloft 100 mg/day + ambien 10 mg/hs during this hospital course.Mr Allen endorses a history of suicide attempt via overdose with drugs (at age 40). Physical/Sexual Abuse/Trauma History: Patient denies. Additional Comment: Urine Drug Screen Results: OPI-Opiates, MTD-Methadone.Noted. Mental Status Exam - Mental Status Exam Alert and Oriented to: Time, Place, Person Cognitive Function: Good Patient Appearance: Unkempt, Disheveled Mood: Withdrawn Affect: Mood Congruent Patient Behavior: Passive, Fatigued, Guarded, Appropriate Speech Pattern: Clear Voice Loudness: Normal Thought Process: Goal Oriented Thought Disorder: Not Present Hallucinations: Denies Suicidal Ideation: Denies Homicidal Ideation: Denies Insight/Judgement: Poor Sleep: Poorly, Difficulty falling asleep Appetite: Good Muscle strength/Tone: Normal Gait/Station: Normal Psychiatric Findings - Problem List ([place] 1, 2,3) (1) Opioid dependence with withdrawal Current Visit: Yes Status: Acute (2) Nicotine dependence Current Visit: Yes Status: Acute Qualifiers: Nicotine product type: cigarettes Substance use status: in withdrawal Qualified Code(s): F17.213 - Nicotine dependence, cigarettes, with withdrawal (3) Substance induced mood disorder Current Visit: Yes Status: Acute (4) MDD (major depressive disorder) Current Visit: No Status: Chronic Comment: History. (5) Insomnia Current Visit: Yes Status: Acute Qualifiers: Insomnia type: unspecified Qualified Code(s): G47.00 - Insomnia, unspecified - Initial Treatment Plan Initial Treatment Plan: Psychoeducation is initiated.Detoxification is under way.Medications : zoloft 100 mg po daily + ambien 10 mg po hs prn.Side effects/ benefits are discussed with the patient.He is agreable with this careplan.Observation.
[2017-06-08] MEDS ORDERED: ZOLPIDEM TARTRATE 10 MG TABLET (PARK CARE ONLY) PO PRN (22:00)
[2017-06-08] MEDS: THIAMINE HCL 100 MG TABLET (FP) PO SCH (22:24)
[2017-06-09] MEDS: diazePAM 5 MG TABLET PO PRN ×4 (01:28→22:16)
[2017-06-09] MEDS ORDERED: SERTRALINE HCL 50 MG TABLET (FP) PO SCH (10:00)
[2017-06-09] MEDS ORDERED: METHADONE HCL 5 MG TABLET (FOR DETOX USE ONLY) PO ONE (10:00)
[2017-06-09] MEDS: PRENATAL VITAMINS W/ FOLIC ACID TABLET (FP) PO SCH (10:18)
[2017-06-09] MEDS: NICOTINE 21 MG/24 HOURS TOPICAL PATCH TD SCH (10:19)
--- NOTE | 2017-06-09 12:19 | PN ---
BHS COWS - Scale Resting Pulse: 2= [place] 101-120 Sweatin= Chills/Flushing Restless Observation: 1= Difficult to Sit Still Pupil Size: 0= Normal to Room Light Bone or Joint Aches: 1= Mild Discomfort Runny Nose/ Eye Tearin= Runny Nose/Eyes GI Upset > 30mins: 2= Nausea/Diarrhea Tremor Observation of Outstretched Hands: 0= None Yawning Observation: 2= >3x During Session Anxiety or Irritability: 2=Irritable/Anxious Goose Flesh Skin: 0=Smooth Skin COWS Score: 13 BHS Progress Note (SOAP) Subjective: Sweating, Nausea. Objective: PT. A & O X 3. NO ACUTE DISTRESS. PT. DENIES CHEST PAIN. 06/09/17 12:20 Vital Signs Temperature 99.1 F 06/09/17 09:35 Pulse Rate 103 H 06/09/17 09:35 Respiratory Rate 20 06/09/17 09:35 Blood Pressure 142/103 06/09/17 09:35 O2 Sat by Pulse Oximetry (%) Laboratory Tests 06/07/17 06/07/17 06/08/17 12:20 22:20 06:15 WBC 5.3 RBC 5.09 Hgb 13.6 Hct 41.2 MCV 81.0 MCH 26.7 MCHC 33.0 RDW 14.5 Plt Count 307 MPV 7.8 Sodium Potassium Chloride Carbon Dioxide Anion Gap BUN Creatinine Creat Clearance w eGFR Random Glucose Calcium Total Bilirubin AST ALT Alkaline Phosphatase Total Protein Albumin Urine Color Yellow Urine Appearance Clear Urine pH 5.0 Ur Specific [place] 1.025 Urine Protein Negative Urine Glucose (UA) Negative Urine Ketones Negative Urine Blood Negative Urine Nitrite Negative Urine Bilirubin Negative Urine Urobilinogen Negative Ur Leukocyte Esterase Negative RPR Titer HIV 1&2 Antibody Screen Negative HIV P24 Antigen Negative 06/08/17 06/08/17 06:15 06:15 WBC RBC Hgb Hct MCV MCH MCHC RDW Plt Count MPV Sodium 138 Potassium 4.4 Chloride 102 Carbon Dioxide 28 Anion Gap 8 BUN 12 D Creatinine 0.8 Creat Clearance w eGFR > 60 Random Glucose 107 H Calcium 9.1 Total Bilirubin 0.7 D AST 19 D ALT 32 D Alkaline Phosphatase 112 Total Protein 7.6 Albumin 4.0 Urine Color Urine Appearance Urine pH Ur Specific [place] Urine Protein Urine Glucose (UA) Urine Ketones Urine Blood Urine Nitrite Urine Bilirubin Urine Urobilinogen Ur Leukocyte Esterase RPR Titer Nonreactive HIV 1&2 Antibody Screen HIV P24 Antigen LABS NOTED. Assessment: 06/09/17 12:20 WITHDRAWAL SYMPTOMS. Plan: CONTINUE DETOX. CLONIDINE, 01. MG PO X 1 FOR ELEVATED BP.
[2017-06-09] MEDS ORDERED: cloNIDine HCL 0.1 MG TABLET PO ONE (12:23)
--- NOTE | 2017-06-09 14:52 | EKG ---
Test Reason : Blood Pressure : / mmHG Vent. Rate : 080 BPM Atrial Rate : 080 BPM P-R Int : 150 ms QRS Dur : 086 ms QT Int : 360 ms P-R-T Axes : 067 040 044 degrees QTc Int : 415 ms NORMAL SINUS RHYTHM NORMAL ECG WHEN COMPARED WITH ECG OF 05-MAR-2017 16:57, NO SIGNIFICANT CHANGE WAS FOUND Confirmed by JODI GUZMAN MD ([id number]) on 06/09/2017 2:51:47 PM Referred By: Confirmed By:JODI GUZMAN MD
[2017-06-09] MEDS: THIAMINE HCL 100 MG TABLET (FP) PO SCH (22:16)
[2017-06-10] MEDS: diazePAM 5 MG TABLET PO PRN (06:25)
[2017-06-10 06:38] VITALS: BP 124/88; PULSE 110; TEMP 98.6
--- NOTE | 2017-06-10 07:10 | PN ---
S Progress Note Note: patient did not want to complete treatment,stated that he has to go to work,did not want to wait,signed release ama
--- NOTE | 2017-06-10 07:14 | DS ---
[facility] Detox Discharge Summary Admission Date: 06/07/17 Discharge Date: 06/10/17 - History Present History: Opioid Dependence Additional Comments: patient did not want to complete treatment,stated he has to go to work,did not want to wait,signed release ama Pertinent Past History: nicotine dependence - Physical Exam Results Vital Signs: Vital Signs Temperature 98.6 F 06/10/17 06:37 Pulse Rate 110 H 06/10/17 06:37 Respiratory Rate 18 06/10/17 06:37 Blood Pressure 124/88 06/10/17 06:37 O2 Sat by Pulse Oximetry (%) Pertinent Admission Physical Exam Findings: withdrawal symptom - Medication Discharge Medications: Ambulatory Orders Sertraline HCl [Zoloft] 100 mg PO BID 06/07/17 Sertraline HCl [Zoloft] 100 mg PO DAILY #30 tablet 06/08/17 - Diagnosis (1) Opioid dependence with withdrawal Current Visit: Yes Status: Acute (2) Insomnia Current Visit: Yes Status: Acute Qualifiers: Insomnia type: unspecified Qualified Code(s): G47.00 - Insomnia, unspecified (3) Nicotine dependence Current Visit: Yes Status: Acute Qualifiers: Nicotine product type: cigarettes Substance use status: in withdrawal Qualified Code(s): F17.213 - Nicotine dependence, cigarettes, with withdrawal (4) MDD (major depressive disorder) Current Visit: No Status: Chronic (5) PTSD (post-traumatic stress disorder) Current Visit: No Status: Chronic - AMA Did Patient Leave Against Medical Advice: Yes
[2017-06-10] MEDS ORDERED: METHADONE HCL 5 MG TABLET (FOR DETOX USE ONLY) PO ONE (10:00)
[2017-06-11] MEDS ORDERED: METHADONE HCL 10 MG TABLET (FOR DETOX USE ONLY) PO ONE (10:00)
[2017-06-12] MEDS ORDERED: METHADONE HCL 5 MG TABLET (FOR DETOX USE ONLY) PO ONE (06:00)
== END 2017-06-10 07:05 | disposition left against medical advice (07) | DRG 894 ==
LOC: YASAS 08:56 → Y3N 12:43
PROVIDERS: ADMIT Internal Medicine; ATTEND Internal Medicine
PROC: HZ2ZZZZ Detoxification Services for Substance Abuse Treatment (ICD-10-PCS; principal; 2017-06-07)
DX: F11.23 Opioid dependence with withdrawal (principal); F33.9 Major depressive disorder, recurrent, unspecified; F17.210 Nicotine dependence, cigarettes, uncomplicated; F43.10 Post-traumatic stress disorder, unspecified; F19.24 Other psychoactive substance dependence with psychoactive substance-induced mood disorder; G47.00 Insomnia, unspecified
CPT/HCPCS: 36415; 80053; 81003; 85027; 86593; 87389; 93005; 93010

== ENCOUNTER 2017-08-09 08:49 | Inpatient (IN) | payer MEDICARE, OTHER ==
[2017-08-09 10:44] VITALS: BMI 29.0
--- NOTE | 2017-08-09 13:14 | HP ---
COWS - Scale Resting Pulse: 1= [place] 81-100 Sweatin=Flushed/Facial Moisture Restless Observation: 3= Extraneous Movement Pupil Size: 2= Moderately Dilated Bone or Joint Aches: 2= Severe Diffuse Aches Runny Nose/ Eye Tearin= Runny Nose/Eyes GI Upset > 30mins: 3= Vomiting/Diarrhea Tremor Observation: 2= Slight Tremor Visible Yawning Observation: 2= >3x During Session Anxiety or Irritability: 2=Irritable/Anxious Goose Flesh Skin: 0=Smooth Skin COWS Score: 21 Admission ROS BHS - HPI Chief Complaint: I NEED HELP TO STOP USING HEROIN Allergies/Adverse Reactions: Allergies Allergy/AdvReac Type Severity Reaction Status Date / Time No Known Allergies Allergy Verified 08/09/17 11:41 History of Present Illness: THIS 51 YEARS OLD MALE WITH HEROIN DEPENDENCE,SEEKING DETOX,LAST TREATMENT [facility] 06/07/17 TO 06/10/17 NOT COMPLETED DEPRESSION INSOMNIA MULTIPLE ADMISSIONS TO DETOX NO SIGNIFICANT PERIOD OF SOBRIETY Exam Limitations: No Limitations - Ebola screening Have you traveled outside of the country in the last 21 days: No Have you been sick,other than usual withdrawal symptoms: No - Review of Systems Constitutional: Chills, Loss of Appetite, Malaise, Night Sweats, Changes in sleep, Weakness EENT: reports: Tearing, Nose Congestion Respiratory: reports: No Symptoms reported Cardiac: reports: No Symptoms Reported GI: reports: Nausea, Poor Appetite, Vomiting, Abdominal cramping : reports: No Symptoms Reported Musculoskeletal: reports: Back Pain, Joint Pain, Muscle Pain, Joint Stiffness Integumentary: reports: Dryness Neuro: reports: Headache, Tremors Endocrine: reports: No Symptoms Reported Hematology: reports: No Symptoms Reported Psychiatric: reports: No Sypmtoms Reported, Judgement Intact, Mood/Affect Appropiate, Orientated x3 (DEPRESSION) Patient History - Patient Medical History Hx Anemia: No Hx Asthma: No Hx Chronic Obstructive Pulmonary Disease (COPD): No Hx Cancer: No Hx Cardiac Disorders: No Hx Congestive Heart Failure: No Hx Hypertension: No Hx Hypercholesterolemia: No Hx Pacemaker: No HX Cerebrovascular Accident: No Hx Seizures: No Hx Dementia: No Hx Diabetes: No Hx Gastrointestinal Disorders: No Hx Liver Disease: No Hx Genitourinary Disorders: No Hx Sexually Transmitted Disorders: No Hx Renal Disease (ESRD): No Hx Thyroid Disease: No Hx Human Immunodeficiency Virus (HIV): No (LAST 03/17 NEGATIVE) Hx Hepatitis C: No Hx Depression: Yes (ON MEDICATION) Hx Suicide Attempt: No Hx Bipolar Disorder: No Hx Schizophrenia: No Other Medical History: NO SUICIDAL,NO HOMICIDAL - Patient Surgical History Past Surgical History: No Hx Neurologic Surgery: No Hx Cataract Extraction: No Hx Cardiac Surgery: No Hx Lung Surgery: No Hx Breast Surgery: No Hx Breast Biopsy: No Hx Abdominal Surgery: No Hx Appendectomy: No Hx Cholecystectomy: No Hx Genitourinary Surgery: No Hx Section: No Hx Orthopedic Surgery: No Anesthesia Reaction: No - PPD History Previous Implant?: Yes Documented Results: Negative w/proof Implanted On Prior [facility] Admission?: Yes Date: 10/22/16 Results: 0 mm PPD to be Administered?: No - Smoking Cessation Smoking history: Current every day smoker Have you smoked in the past 12 months: Yes Aproximately how many cigarettes per day: 20 Cigars Per Day: 0 Hx Chewing Tobacco Use: No Initiated information on smoking cessation: Yes 'Breaking Loose' booklet given: 08/09/17 - Substance & Tx. History Hx Alcohol Use: No Hx Substance Use: Yes Substance Use Type: Heroin Hx Substance Use Treatment: Yes ([facility] 06/07/17 TO 06/10/17 NOT COMPLETED) - Substances Abused Heroin Route: Inhalation Frequency: Daily Amount used: 20 bags Age of first use: 50 Date of Last Use: 08/08/17 Family Disease History - Family Disease History Family Disease History: Heart Disease: Mother (STROKE), Other: Father ( MVA, etoh hx) Admission Physical Exam S - Vital Signs Vital Signs: Vital Signs - 24 hr 08/09/17 10:43 Temperature 98.1 F Pulse Rate 83 Respiratory 20 Rate Blood Pressure 132/84 - Physical General Appearance: Yes: Moderate Distress, Tremorous, Irritable, Sweating, Anxious HEENTM: Yes: Normal ENT Inspection, Normocephalic, MARCELLA, Pharynx Normal Respiratory: Yes: Lungs Clear, Normal Breath Sounds, No Respiratory Distress Neck: Yes: Within Normal Limits, Supple, Trachea in good position Breast: Yes: Within Normal Limits Cardiology: Yes: Within Normal Limits, Regular Rhythm, Regular Rate, S1, S2 Abdominal: Yes: Within Normal Limits, Normal Bowel Sounds, Non Tender, Soft Genitourinary: Yes: Within Normal Limits Back: Yes: Muscle Spasm Musculoskeletal: Yes: Within Normal Limits, full range of Motion, Back pain Extremities: Yes: Within Normal Limits, Normal Range of Motion, Tremors 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: Yes: Within Normal Limits, expressive therapist II-XII NML intact, Fully Oriented, Alert, Motor Strength 5/5 Integumentary: Yes: Within Normal Limits Lymphatic: Yes: Within Normal Limits - Diagnostic (1) Opioid dependence with withdrawal Current Visit: No Status: Acute (2) Insomnia Current Visit: No Status: Acute Qualifiers: Insomnia type: unspecified Qualified Code(s): G47.00 - Insomnia, unspecified; G47.00 - Insomnia, unspecified (3) Nicotine dependence Current Visit: No Status: Acute Qualifiers: Nicotine product type: cigarettes Substance use status: in withdrawal Qualified Code(s): F17.213 - Nicotine dependence, cigarettes, with withdrawal; F17.213 - Nicotine dependence, cigarettes, with withdrawal (4) MDD (major depressive disorder) Current Visit: No Status: Chronic Comment: History. Cleared for Admission [facility] - Detox or Rehab [facility] Level of Care: Medically Managed Detox Regimen/Protocol: Methadone [facility] Breath Alcohol Content Breath Alcohol Content: 0 Urine Drug Screen - Results Drug Screen Negative: No Urine Drug Screen Results: OPI-Opiates
[2017-08-09] MEDS ORDERED: NICOTINE POLACRILEX 2 MG GUM BUC PRN (13:22)
[2017-08-09] MEDS ORDERED: MAGNESIUM CITRATE 300 ML BOTTLE PO PRN (13:22)
[2017-08-09] MEDS ORDERED: MENTHOL/PHENOL 1 EACH UD MM PRN (13:22)
[2017-08-09] MEDS ORDERED: ACETAMINOPHEN 325 MG TABLET (FP) PO PRN (13:22)
[2017-08-09] MEDS ORDERED: guaiFENesin/D-METHORPHAN HB 10 ML UNIT-DOSE CUPS PO PRN (13:22)
[2017-08-09] MEDS ORDERED: P-EPHED 60MG/TRIPROLIDI 2.5MG TABLET PO PRN (13:22)
[2017-08-09] MEDS ORDERED: MAGNESIUM HYDROX 2400MG/30ML ORAL SUSPENSION 30 ML CUP PO PRN (13:22)
[2017-08-09] MEDS ORDERED: METHADONE HCL 10 MG TABLET (FOR DETOX USE ONLY) PO ONE ×2 (14:02→23:00)
[2017-08-09] MEDS: NICOTINE 21 MG/24 HOURS TOPICAL PATCH TD SCH (14:48)
[2017-08-09] MEDS: diazePAM 5 MG TABLET PO PRN ×2 (14:50→22:14)
[2017-08-09 16:46] LABS: MCH 26.5 pg (25.7-33.7); MCHC 33.1 g/dl (32.0-35.9); MEAN CELL VOLUME 79.9 fl (80-96); MEAN PLT VOLUME 7.7 fl (7.5-11.1); PLATELET COUNT 385 K/MM3 (134-434)
[2017-08-09 17:09] LABS: ALK PHOS 118 U/L (45-117); ANION GAP 8 (8-16); BILIRUBIN,TOTAL 0.5 mg/dL (0.2-1.0); CALCIUM 9.6 mg/dL (8.5-10.1); CO2 31 mmol/L (21-32); CREATININE 0.8 mg/dL (0.7-1.3); GLUCOSE,RANDOM 102 mg/dL (74-106); SGOT/AST 17 U/L (15-37); SGPT/ALT 32 U/L (12-78); TOT PROT 8.3 g/dl (6.4-8.2)
[2017-08-09 20:48] LABS: URINE APPEARANCE CLEAR; URINE BILIRUBIN NEGATIVE (NEGATIVE); URINE BLOOD NEGATIVE (NEGATIVE); URINE COLOR YELLOW; URINE GLUCOSE (UA) NEGATIVE (NEGATIVE); URINE KETONE NEGATIVE (NEGATIVE); URINE NITRITE NEGATIVE (NEGATIVE); URINE PROTEIN NEGATIVE (NEGATIVE); URINE UROBILINOGEN NEGATIVE mg/dL (0.2-1.0)
[2017-08-09] MEDS: diphenhydrAMINE HCL 50 MG CAPSULE PO PRN (22:14)
[2017-08-09] MEDS: THIAMINE HCL 100 MG TABLET (FP) PO SCH (22:14)
[2017-08-09] MEDS: cloNIDine HCL 0.1 MG TABLET PO SCH (22:14)
[2017-08-09 22:43] LABS: URINE LEUK ESTERASE Negative (NEGATIVE)
[2017-08-10] MEDS ORDERED: METHADONE HCL 10 MG TABLET (FOR DETOX USE ONLY) PO ONE (10:00)
[2017-08-10] MEDS: NICOTINE 21 MG/24 HOURS TOPICAL PATCH TD SCH (10:56)
[2017-08-10] MEDS: cloNIDine HCL 0.1 MG TABLET PO SCH ×2 (10:56→22:14)
[2017-08-10] MEDS: diazePAM 5 MG TABLET PO PRN ×3 (10:56→22:14)
[2017-08-10] MEDS: CYCLOBENZAPRINE HCL 10 MG TABLET (FP) PO PRN ×2 (10:56→22:14)
[2017-08-10] MEDS: PRENATAL VITAMINS W/ FOLIC ACID TABLET (FP) PO SCH (10:56)
--- NOTE | 2017-08-10 11:16 | CONSULT ---
[facility] Psychiatric Consult - Data Date of interview: 08/10/17 Admission source: [facility] Identifying data: Readmission to [facility] for this 51 y/o AA male seeking detox treatment on for heroin dependence.Patient is single without children,domiciled,unemployed and supported on SSI benefits. Substance Abuse History: Discussed in this session.Patient confirmed this report. Smoking Cessation. Smoking history: Current every day smoker. Have you smoked in the past 12 months: Yes. Aproximately how many cigarettes per day : 20. Cigars Per Day: 0. Hx Chewing Tobacco Use: No. Initiated information on smoking cessation: Yes. 'Breaking Loose' booklet given: 08/09/17. - Substance & Tx. History. Hx Alcohol Use: No. Hx Substance Use: Yes. Substance Use Type: Heroin. Hx Substance Use Treatment: Yes ([facility] 06/07/17 TO 06/10/17 NOT COMPLETED). - Substances Abused. Heroin. Route: Inhalation. Frequency: Daily. Amount used: 20 bags. Age of first use: 50. Date of Last Use: 08/08/17 Medical History: Patient denies medical problems. Psychiatric History: Patient denies history of psychiatric hospitalizations (in contradiction with a previous statement made to this staff writer in April 2017 : one psychiatric hospitalization at [facility] in [facility]) .Diagnosed with MDD/PTSD.Mr Allen reports that he sees a private psychiatrist in [facility].Known history of chronic non-adherence to OPD care.Now willing to resume zoloft 100 mg/day + ambien 10 mg/hs during this hospital course.History of suicide attempt via overdose with drugs (at age 40). Physical/Sexual Abuse/Trauma History: No reported history of abuse. Additional Comment: Urine Drug Screen Results: OPI-Opiates.Noted. Mental Status Exam - Mental Status Exam Alert and Oriented to: Time, Place, Person Cognitive Function: Good Patient Appearance: Well Groomed Mood: Hopeful, Euthymic Affect: Normal Range Patient Behavior: Fatigued, Cooperative Speech Pattern: Clear Voice Loudness: Normal Thought Process: Goal Oriented Thought Disorder: Not Present Hallucinations: Denies Suicidal Ideation: Denies Homicidal Ideation: Denies Insight/Judgement: Poor Sleep: Poorly, Difficulty falling asleep Appetite: Good Muscle strength/Tone: Normal Gait/Station: Normal Psychiatric Findings - Problem List ([place] 1, 2,3) (1) Opioid dependence with withdrawal Current Visit: Yes Status: Acute (2) Nicotine dependence Current Visit: Yes Status: Acute Qualifiers: Nicotine product type: cigarettes Substance use status: in withdrawal Qualified Code(s): F17.213 - Nicotine dependence, cigarettes, with withdrawal; F17.213 - Nicotine dependence, cigarettes, with withdrawal (3) Substance induced mood disorder Current Visit: Yes Status: Acute (4) Insomnia Current Visit: Yes Status: Acute Qualifiers: Insomnia type: unspecified Qualified Code(s): G47.00 - Insomnia, unspecified; G47.00 - Insomnia, unspecified - Initial Treatment Plan Initial Treatment Plan: Psychoeducation.Detoxification.Zoloft 100 mg po daily + ambien 10 mg po hs.Side effects/benefits discussed with patient.Agrees to follow this careplan.Observation.
[2017-08-10] MEDS ORDERED: TRIMETHOBENZAMIDE HCL 200MG/2ML INJ IM PRN (11:30)
--- NOTE | 2017-08-10 12:19 | PN ---
BHS COWS - Scale Resting Pulse: 1= [place] 81-100 Sweatin= Chills/Flushing Restless Observation: 3= Extraneous Movement Pupil Size: 1= Pupils >than Normal Bone or Joint Aches: 2= Severe Diffuse Aches Runny Nose/ Eye Tearin= Runny Nose/Eyes GI Upset > 30mins: 3= Vomiting/Diarrhea Tremor Observation of Outstretched Hands: 2= Slight Tremor Visible Yawning Observation: 1= 1-2x During Session Anxiety or Irritability: 2=Irritable/Anxious Goose Flesh Skin: 0=Smooth Skin COWS Score: 18 BHS Progress Note (SOAP) Subjective: ALERT,IRRITABLE,ANXIOUS,TREMOR,PAIN IN THE BODY JOINT AND BACK Objective: 08/10/17 12:16 Vital Signs Temperature 98.1 F 08/10/17 09:56 Pulse Rate 83 08/10/17 09:56 Respiratory Rate 18 08/10/17 09:56 Blood Pressure 151/88 08/10/17 09:56 O2 Sat by Pulse Oximetry (%) EKG NSR NO CHEST PAIN,NO SOB,NO DIZZINESS Laboratory Last Values WBC 6.0 K/mm3 (4.0-10.0) 08/09/17 14:00 RBC 5.40 M/mm3 (4.00-5.60) 08/09/17 14:00 Hgb 14.3 GM/dL (11.7-16.9) 08/09/17 14:00 Hct 43.1 % (35.4-49) 08/09/17 14:00 MCV 79.9 fl (80-96) L 08/09/17 14:00 MCH 26.5 pg (25.7-33.7) 08/09/17 14:00 MCHC 33.1 g/dl (32.0-35.9) 08/09/17 14:00 RDW 15.0 % (11.9-15.9) 08/09/17 14:00 Plt Count 385 K/MM3 (134-434) D 08/09/17 14:00 MPV 7.7 fl (7.5-11.1) 08/09/17 14:00 Sodium 139 mmol/L (136-145) 08/09/17 14:00 Potassium 4.7 mmol/L (3.5-5.1) 08/09/17 14:00 Chloride 100 mmol/L (98-107) 08/09/17 14:00 Carbon Dioxide 31 mmol/L (21-32) 08/09/17 14:00 Anion Gap 8 (8-16) 08/09/17 14:00 BUN 9 mg/dL (7-18) D 08/09/17 14:00 Creatinine 0.8 mg/dL (0.7-1.3) 08/09/17 14:00 Creat Clearance w eGFR > 60 (>60) 08/09/17 14:00 Random Glucose 102 mg/dL (74-106) 08/09/17 14:00 Calcium 9.6 mg/dL (8.5-10.1) 08/09/17 14:00 Total Bilirubin 0.5 mg/dL (0.2-1.0) D 08/09/17 14:00 AST 17 U/L (15-37) 08/09/17 14:00 ALT 32 U/L (12-78) 08/09/17 14:00 Alkaline Phosphatase 118 U/L (45-117) H 08/09/17 14:00 Total Protein 8.3 g/dl (6.4-8.2) H 08/09/17 14:00 Albumin 4.0 g/dl (3.4-5.0) 08/09/17 14:00 Urine Color Yellow 08/09/17 16:04 Urine Appearance Clear 08/09/17 16:04 Urine pH 7.0 (5.0-8.0) D 08/09/17 16:04 Ur Specific [place] 1.015 (1.005-1.025) 08/09/17 16:04 Urine Protein Negative (NEGATIVE) 08/09/17 16:04 Urine Glucose (UA) Negative (NEGATIVE) 08/09/17 16:04 Urine Ketones Negative (NEGATIVE) 08/09/17 16:04 Urine Blood Negative (NEGATIVE) 08/09/17 16:04 Urine Nitrite Negative (NEGATIVE) 08/09/17 16:04 Urine Bilirubin Negative (NEGATIVE) 08/09/17 16:04 Urine Urobilinogen Negative mg/dL (0.2-1.0) 08/09/17 16:04 Ur Leukocyte Esterase Negative (NEGATIVE) 08/09/17 16:04 Assessment: 08/10/17 12:18 WITHDRAWAL SYMPTOM Plan: CONTINUE DETOX
[2017-08-10] MEDS: hydrOXYzine PAMOATE 25 MG CAPSULE (FP) PO PRN (12:58)
[2017-08-10] MEDS: THIAMINE HCL 100 MG TABLET (FP) PO SCH (22:14)
[2017-08-10] MEDS: ZOLPIDEM TARTRATE 10 MG TABLET (PARK CARE ONLY) PO PRN (22:14)
[2017-08-11] MEDS: diphenhydrAMINE HCL 50 MG CAPSULE PO PRN (01:22)
[2017-08-11] MEDS: MAG HYDROX/AL HYDROX/SIMETH 30 ML UNIT-DOSE CUP PO PRN ×3 (01:23→22:09)
[2017-08-11] MEDS: diazePAM 5 MG TABLET PO PRN ×2 (09:09→22:09)
--- NOTE | 2017-08-11 09:43 | EKG ---
Test Reason : Blood Pressure : / mmHG Vent. Rate : 079 BPM Atrial Rate : 079 BPM P-R Int : 154 ms QRS Dur : 084 ms QT Int : 374 ms P-R-T Axes : 061 018 023 degrees QTc Int : 428 ms NORMAL SINUS RHYTHM POSSIBLE LEFT ATRIAL ENLARGEMENT BORDERLINE ECG WHEN COMPARED WITH ECG OF 07-JUN-2017 14:09, NO SIGNIFICANT CHANGE WAS FOUND Confirmed by ALVIN MADRIGAL MD ([id number]) on 08/11/2017 9:42:42 AM Referred By: Confirmed By:ALVIN MADRIGAL MD
[2017-08-11] MEDS ORDERED: METHADONE HCL 5 MG TABLET (FOR DETOX USE ONLY) PO ONE (10:00)
[2017-08-11] MEDS: PRENATAL VITAMINS W/ FOLIC ACID TABLET (FP) PO SCH (10:45)
[2017-08-11] MEDS: SERTRALINE HCL 50 MG TABLET (FP) PO SCH (10:45)
[2017-08-11] MEDS: cloNIDine HCL 0.1 MG TABLET PO SCH ×2 (10:45→22:09)
[2017-08-11] MEDS: NICOTINE 21 MG/24 HOURS TOPICAL PATCH TD SCH (11:40)
--- NOTE | 2017-08-11 12:33 | PN ---
BHS COWS - Scale Resting Pulse: 1= [place] 81-100 Sweatin= Chills/Flushing Restless Observation: 3= Extraneous Movement Pupil Size: 1= Pupils >than Normal Bone or Joint Aches: 2= Severe Diffuse Aches Runny Nose/ Eye Tearin= Runny Nose/Eyes GI Upset > 30mins: 2= Nausea/Diarrhea Tremor Observation of Outstretched Hands: 2= Slight Tremor Visible Yawning Observation: 1= 1-2x During Session Anxiety or Irritability: 2=Irritable/Anxious Goose Flesh Skin: 0=Smooth Skin COWS Score: 17 S Progress Note (SOAP) Subjective: alert,irritable,anxious,interrupted sleep,tremor,pain in the body and back Objective: 08/11/17 12:31 Vital Signs Temperature 97.3 F L 08/11/17 10:57 Pulse Rate 100 H 08/11/17 10:57 Respiratory Rate 18 08/11/17 10:57 Blood Pressure 155/90 08/11/17 10:57 O2 Sat by Pulse Oximetry (%) Laboratory Last Values WBC 6.0 K/mm3 (4.0-10.0) 08/09/17 14:00 RBC 5.40 M/mm3 (4.00-5.60) 08/09/17 14:00 Hgb 14.3 GM/dL (11.7-16.9) 08/09/17 14:00 Hct 43.1 % (35.4-49) 08/09/17 14:00 MCV 79.9 fl (80-96) L 08/09/17 14:00 MCH 26.5 pg (25.7-33.7) 08/09/17 14:00 MCHC 33.1 g/dl (32.0-35.9) 08/09/17 14:00 RDW 15.0 % (11.9-15.9) 08/09/17 14:00 Plt Count 385 K/MM3 (134-434) D 08/09/17 14:00 MPV 7.7 fl (7.5-11.1) 08/09/17 14:00 Sodium 139 mmol/L (136-145) 08/09/17 14:00 Potassium 4.7 mmol/L (3.5-5.1) 08/09/17 14:00 Chloride 100 mmol/L (98-107) 08/09/17 14:00 Carbon Dioxide 31 mmol/L (21-32) 08/09/17 14:00 Anion Gap 8 (8-16) 08/09/17 14:00 BUN 9 mg/dL (7-18) D 08/09/17 14:00 Creatinine 0.8 mg/dL (0.7-1.3) 08/09/17 14:00 Creat Clearance w eGFR > 60 (>60) 08/09/17 14:00 Random Glucose 102 mg/dL (74-106) 08/09/17 14:00 Calcium 9.6 mg/dL (8.5-10.1) 08/09/17 14:00 Total Bilirubin 0.5 mg/dL (0.2-1.0) D 08/09/17 14:00 AST 17 U/L (15-37) 08/09/17 14:00 ALT 32 U/L (12-78) 08/09/17 14:00 Alkaline Phosphatase 118 U/L (45-117) H 08/09/17 14:00 Total Protein 8.3 g/dl (6.4-8.2) H 08/09/17 14:00 Albumin 4.0 g/dl (3.4-5.0) 08/09/17 14:00 Urine Color Yellow 08/09/17 16:04 Urine Appearance Clear 08/09/17 16:04 Urine pH 7.0 (5.0-8.0) D 08/09/17 16:04 Ur Specific [place] 1.015 (1.005-1.025) 08/09/17 16:04 Urine Protein Negative (NEGATIVE) 08/09/17 16:04 Urine Glucose (UA) Negative (NEGATIVE) 08/09/17 16:04 Urine Ketones Negative (NEGATIVE) 08/09/17 16:04 Urine Blood Negative (NEGATIVE) 08/09/17 16:04 Urine Nitrite Negative (NEGATIVE) 08/09/17 16:04 Urine Bilirubin Negative (NEGATIVE) 08/09/17 16:04 Urine Urobilinogen Negative mg/dL (0.2-1.0) 08/09/17 16:04 Ur Leukocyte Esterase Negative (NEGATIVE) 08/09/17 16:04 RPR Titer Nonreactive (NONREACTIVE) 08/09/17 14:00 Assessment: 08/11/17 12:32 withdrawal symptom Plan: continue detox
[2017-08-11] MEDS: THIAMINE HCL 100 MG TABLET (FP) PO SCH (22:09)
[2017-08-11] MEDS: ZOLPIDEM TARTRATE 10 MG TABLET (PARK CARE ONLY) PO PRN (22:09)
[2017-08-11] MEDS: CYCLOBENZAPRINE HCL 10 MG TABLET (FP) PO PRN (22:09)
--- NOTE | 2017-08-12 08:49 | PN ---
BHS Progress Note (SOAP) Subjective: alert,irritable,anxious,interrupted sleep,pain in the body and back Objective: 08/12/17 08:48 Vital Signs Temperature 98.2 F 08/12/17 06:00 Pulse Rate 85 08/12/17 06:00 Respiratory Rate 18 08/12/17 06:00 Blood Pressure 125/78 08/12/17 06:00 O2 Sat by Pulse Oximetry (%) 08/12/17 08:48 Assessment: 08/12/17 08:48 withdrawal symptom Plan: continue detox
[2017-08-12] MEDS ORDERED: METHADONE HCL 5 MG TABLET (FOR DETOX USE ONLY) PO ONE (10:00)
[2017-08-12] MEDS: diazePAM 5 MG TABLET PO PRN (10:54)
[2017-08-12] MEDS: cloNIDine HCL 0.1 MG TABLET PO SCH ×2 (10:55→22:14)
[2017-08-12] MEDS: NICOTINE 21 MG/24 HOURS TOPICAL PATCH TD SCH (10:55)
[2017-08-12] MEDS: PRENATAL VITAMINS W/ FOLIC ACID TABLET (FP) PO SCH (10:55)
[2017-08-12] MEDS: SERTRALINE HCL 50 MG TABLET (FP) PO SCH (10:55)
[2017-08-12] MEDS: MAG HYDROX/AL HYDROX/SIMETH 30 ML UNIT-DOSE CUP PO PRN (10:56)
[2017-08-12] MEDS: hydrOXYzine PAMOATE 25 MG CAPSULE (FP) PO PRN (17:31)
[2017-08-12] MEDS: THIAMINE HCL 100 MG TABLET (FP) PO SCH (22:13)
[2017-08-12] MEDS: ZOLPIDEM TARTRATE 10 MG TABLET (PARK CARE ONLY) PO PRN (22:14)
[2017-08-12] MEDS: CYCLOBENZAPRINE HCL 10 MG TABLET (FP) PO PRN (22:14)
[2017-08-13 06:42] VITALS: TEMP 97.7
--- NOTE | 2017-08-13 08:27 | PN ---
S Progress Note (SOAP) Subjective: alert,no complaint Objective: 08/13/17 08:24 Vital Signs Temperature 97.7 F 08/13/17 06:41 Pulse Rate 87 08/13/17 06:41 Respiratory Rate 18 08/13/17 06:41 Blood Pressure 118/68 08/13/17 06:41 O2 Sat by Pulse Oximetry (%) Assessment: 08/13/17 08:24 no withdrawal symptom stable for discharge Plan: discharge today,follow up with after care program as arrangement
--- NOTE | 2017-08-13 08:34 | DS ---
[facility] Detox Discharge Summary Admission Date: 08/09/17 Discharge Date: 08/13/17 - History Present History: Opioid Dependence Additional Comments: follow up with after care program as arrangement Pertinent Past History: nicotine dependence insomnia depression - Physical Exam Results Vital Signs: Vital Signs Temperature 97.7 F 08/13/17 06:41 Pulse Rate 87 08/13/17 06:41 Respiratory Rate 18 08/13/17 06:41 Blood Pressure 118/68 08/13/17 06:41 O2 Sat by Pulse Oximetry (%) Pertinent Admission Physical Exam Findings: withdrawal symptom - Treatment Hospital Course: Detox Protocol Followed, Detoxed Safely, Responded well, Discharged Condition Good Patient has Accepted a Rehab Referral to: declined - Medication Discharge Medications: Ambulatory Orders Sertraline HCl [Zoloft] 100 mg PO DAILY #30 tablet 06/08/17 Sertraline HCl [Zoloft] 100 mg PO DAILY #30 tablet 08/10/17 - Diagnosis (1) Opioid dependence with withdrawal Current Visit: Yes Status: Acute (2) Insomnia Current Visit: Yes Status: Acute Qualifiers: Insomnia type: unspecified Qualified Code(s): G47.00 - Insomnia, unspecified; G47.00 - Insomnia, unspecified (3) Nicotine dependence Current Visit: Yes Status: Acute Qualifiers: Nicotine product type: cigarettes Substance use status: in withdrawal Qualified Code(s): F17.213 - Nicotine dependence, cigarettes, with withdrawal; F17.213 - Nicotine dependence, cigarettes, with withdrawal (4) MDD (major depressive disorder) Current Visit: No Status: Chronic - AMA Did Patient Leave Against Medical Advice: No
[2017-08-13] MEDS ORDERED: METHADONE HCL 5 MG TABLET (FOR DETOX USE ONLY) ONE (08:56)
[2017-08-13] MEDS: PRENATAL VITAMINS W/ FOLIC ACID TABLET (FP) PO SCH (09:02)
[2017-08-13] MEDS: cloNIDine HCL 0.1 MG TABLET PO SCH (09:02)
[2017-08-13 09:33] VITALS: BP 111/83; PULSE 115
[2017-08-13] MEDS ORDERED: METHADONE HCL 10 MG TABLET (FOR DETOX USE ONLY) PO ONE (10:00)
[2017-08-13] MEDS ORDERED: METHADONE HCL 5 MG TABLET (FOR DETOX USE ONLY) PO ONE (10:00)
[2017-08-14] MEDS ORDERED: METHADONE HCL 5 MG TABLET (FOR DETOX USE ONLY) PO ONE (06:00)
== END 2017-08-13 09:15 | disposition home or self-care (01) | DRG 897 ==
LOC: YASAS 08:49 → Y6N 12:54
PROVIDERS: ADMIT Internal Medicine; ATTEND Internal Medicine
PROC: HZ2ZZZZ Detoxification Services for Substance Abuse Treatment (ICD-10-PCS; principal; 2017-08-09)
DX: F11.23 Opioid dependence with withdrawal (principal); F33.9 Major depressive disorder, recurrent, unspecified; F17.210 Nicotine dependence, cigarettes, uncomplicated; G47.00 Insomnia, unspecified
CPT/HCPCS: 36415; 80053; 81003; 85027; 86593; 93005; 93010